=== PATIENT | male | born 1940 | race Caucasian/White ===

== ENCOUNTER → 2016-12-02 | Outpatient (CLI) | payer MEDICARE, OTHER ==
--- NOTE | 2016-12-02 16:49 | XCELERA REPORT ---
[address] [address] Lower Extremity Arterial Evaluation Name: EDEN FLORES Age: 76 yrs Gender: Male : 1940 Patient Status: Outpatient Patient Location: Study Date: 12/02/2016 10:49 AM Procedure: A color flow and duplex scan of the lower extremity arteries was performed bilaterally with velocity and waveform anaylsis. Ankle brachial indicies performed. PPG's performed. Reason For Study: PVD Ordering Physician: AMERICO ALVAREZ Performed By: Chelo Evans Measurements and Calculations Right Left ELECTRICAL MACHINIST PSV 177.2 176.4 cm/sec Prox PFA PSV -163.3 -137.6 cm/sec Prox SFA PSV -129.2 -120.1 cm/sec Mid SFA PSV -69.8 -55.6 cm/sec Dist SFA PSV -61.9 -55.3 cm/sec Prox Pop A PSV 39.1 50.6 cm/sec Prox ORION PSV 55.7 cm/sec Dist ORION PSV 68.5 36.5 cm/sec Dist NOISE TESTER PSV 66.2 79.4 cm/sec Tashi Pedis PSV 70.3 -11.9 cm/sec Right Side Arterial Evaluation Normal velocity and triphasic waveforms noted from the Common Femoral artery to the infrageniculate vessels.Heavy calcification noted in blood vessel potts. 0 % stenosis. Ankle Brachial index is 1.4. PPG's are multiphasic with attenuation, mostly in first digit. Left Side Arterial Evaluation Normal velocity and triphasic waveforms noted from the Common Femoral artery to the Posterior Tibial artery. Biphasic in the Anterior Tibial artery. Retrograde in the Dorsalis Pedis.Heavy calcification noted in blood vessel potts. 0 % stenosis. Ankle Brachial index is 1.4. PPG's are multiphasic with attenuation, mostly in first three digits. Interpretation Summary No hemodynamically significant lesions in the right lower extremity only, on duplex imaging, at rest. Mild hemodynamically significant lesions in the left lower extremity only, on duplex imaging, at rest. In spite of normal Hemodynamic findings, heavy calcification and, perhaps, abnormal PPG's are indicative of atherosclerosis. : AMERICO ALVAREZ > Ed Rowe
== END ==
LOC: SP 10:41
PROVIDERS: ATTEND Preventive Medicine Undersea and Hyperbaric Medicine
DX: I73.9 Peripheral vascular disease, unspecified (principal)
CPT/HCPCS: 93922; 93925

== ENCOUNTER 2017-03-27 11:33 | Emergency (ER) | payer MEDICARE, OTHER ==
--- NOTE | 2017-03-27 12:06 | RADIOLOGY REPORT (SQ) ---
EXAM DESCRIPTION: CT HEAD WITHOUT COMPLETED DATE/TIME: 03/27/2017 11:58 am REASON FOR STUDY: Fall COMPARISON: 08/20/2015 TECHNIQUE: Axial images acquired through the brain without intravenous contrast. Images reviewed wi th bone, brain and subdural windows. Images stored on PACS. All CT scanners at this facility use dose modulation, iterative reconstruction, and/or weight based d osing when appropriate to reduce radiation dose to as low as reasonably achievable (ALARA). [facility]: Dose Right [facility]: CareDose [facility]: Dose Right [facility]: Teradose 4D [facility]: Smart SmartHub RADIATION DOSE: CT Rad equipment meets quality standard of care and radiation dose reduction techniq ues were employed. CTDIvol: 64.6 mGy. DLP: 1163 mGy-cm. mGy. LIMITATIONS: None. FINDINGS: VENTRICLES: Prominent. CEREBRUM: No masses. No hemorrhage. No midline shift. Areas of low density in the white matter mos t likely due to chronic micro-vascular ischemic change. No evidence for acute infarction. CEREBELLUM: No masses. No hemorrhage. No alteration of density. No evidence for acute infarction. EXTRAAXIAL SPACES: Mild age-related involutional change. No fluid collections. No masses. ORBITS AND GLOBE: No intra- or extraconal masses. Normal contour of globe without masses. CALVARIUM: Post craniotomy change. No fracture. PARANASAL SINUSES: No fluid or mucosal thickening. SOFT TISSUES: No mass or hematoma. OTHER: No other significant finding. IMPRESSION: MILD CHRONIC CHANGES OF ATROPHY AND MICROVASCULAR ISCHEMIA. NO ACUTE PROCESS. EVIDENCE OF ACUTE STROKE: NO. TECHNICAL DOCUMENTATION: JOB ID: [id number] Quality ID # [id number]: Final reports with documentation of one or more dose reduction techniques (e.g., Au tomated exposure control, adjustment of the mA and/or kV according to patient size, use of iterative reconstruction technique) 2010 [employer]- All Rights Reserved
--- NOTE | 2017-03-27 12:07 | RADIOLOGY REPORT (SQ) ---
EXAM DESCRIPTION: CT CERVICAL SPINE WITHOUT COMPLETED DATE/TIME: 03/27/2017 11:58 am REASON FOR STUDY: Fall COMPARISON: None. TECHNIQUE: Axial images acquired through the cervical spine without intravenous contrast. Images re viewed with lung, soft tissue and bone windows. Reconstructed coronal and sagittal MPR images review ed. Images stored on PACS. All CT scanners at this facility use dose modulation, iterative reconstruction, and/or weight based d osing when appropriate to reduce radiation dose to as low as reasonably achievable (ALARA). [facility]: Dose Right [facility]: CareDose [facility]: Dose Right [facility]: Teradose 4D [facility]: Smart Technologies RADIATION DOSE: CT Rad equipment meets quality standard of care and radiation dose reduction techniq ues were employed. CTDIvol: 22.6 mGy. DLP: 444 mGy-cm. mGy. LIMITATIONS: None. FINDINGS: ALIGNMENT: Grade 1 anterolisthesis C3 on C4 in the setting of facet arthropathy. MINERALIZATION: Normal. VERTEBRAL BODIES: No fractures or dislocation. DISCS: Multilevel disc space narrowing with osteophytes. FACETS, LATERAL MASSES, POSTERIOR ELEMENTS: Facet arthropathy. No fractures. No dislocation. No ac habematolel findings. HARDWARE: None in the spine. VISUALIZED RIBS: No fractures. LUNG APICES AND SOFT TISSUES: No significant or acute findings. OTHER: No other significant finding. IMPRESSION: CHRONIC DEGENERATIVE CHANGES. NO ACUTE FINDINGS. TECHNICAL DOCUMENTATION: JOB ID: [id number] Quality ID # [id number]: Final reports with documentation of one or more dose reduction techniques (e.g., Au tomated exposure control, adjustment of the mA and/or kV according to patient size, use of iterative reconstruction technique) 2010 [employer]- All Rights Reserved
--- NOTE | 2017-03-27 12:08 | ER Document Report ---
ED Medical Screen (RME) - General Chief Complaint: Fall Stated Complaint: LOWER BACK PAIN Time Seen by Provider: 03/27/17 12:02 Mode of Arrival: Ambulatory Information source: Patient Notes: 68-year-old male presenting to the emergency department today secondary to a syncopal episode that occurred yesterday. at bedside states she heard the patient fall in the kitchen. The patient stated he does not remember any of that time, there are a few hours that he cannot recall any events that occurred. Patient has an abrasion to the right side of his back with surrounding ecchymosis and tenderness. Patient is on Plavix and 81 mg aspirin. TRAVEL OUTSIDE OF THE [place] IN LAST 30 DAYS: No - Related Data Allergies/Adverse Reactions: No Known Allergies Allergy (Unverified 05/19/15 08:26) Past Medical History - General Information source: Patient, [facility] Records - Past Medical History Cardiac Medical History: Reports: Hx Congestive Heart Failure - Questionable congestive heart failure, Hx Coronary Artery Disease, Hx Heart Attack - 7 yrs ago, Hx Hypercholesterolemia, Hx Hypertension - medicated Pulmonary Medical History: Reports: Hx COPD Malignancy Medical History: Reports Hx Colorectal Cancer Musculoskeltal Medical History: Reports Hx Arthritis Past Surgical History: Reports: Hx Appendectomy, Hx Bowel Surgery, Hx Cardiac Catheterization, Hx Cardiac Surgery - stent and pacemaker, port placement, Hx Coronary Stent, Hx Internal Defibrillator, Hx Pacemaker - pacer/defib, Hx Vascular Surgery - Chemo-Port placement - Immunizations Hx Diphtheria, Pertussis, Tetanus Vaccination: No Review of Systems - Review of Systems Cardiovascular: See HPI, Syncope Musculoskeletal: See HPI, Back pain Neurological/Psychological: See HPI, Other - memory loss Physical Exam - Vital signs Vitals: Temp Pulse Resp BP Pulse Ox 98.4 F 77 16 150/66 H 97 03/27/17 11:37 03/27/17 11:37 03/27/17 11:37 03/27/17 11:37 03/27/17 11:37 - General General appearance: Appears well, Alert - Respiratory Respiratory status: No respiratory distress Chest status: Nontender Breath sounds: Normal Chest palpation: Normal - Cardiovascular Rhythm: Regular Heart sounds: Normal auscultation Murmur: No - Back Back: Tender Notes: right flank abrasion with surrounding ecchymosis, tenderness over this area. Course - Vital Signs Vital signs: Temp Pulse Resp BP Pulse Ox 98.4 F 77 16 150/66 H 97 03/27/17 11:37 03/27/17 11:37 03/27/17 11:37 03/27/17 11:37 03/27/17 11:37 Scribe Documentation - Scribe Written by Hill:: Hill Chaudhary, 03/27/2017 1254 acting as scribe for :: Kathy
[2017-03-27 13:10] LABS: APPEARANCE,URINE SLIGHTLY-CLOUDY; BILIRUBIN,URINE NEGATIVE (NEGATIVE); COLOR,URINE YELLOW; GLUCOSE, URINE NEGATIVE (NEGATIVE); KETONES,URINE NEGATIVE (NEGATIVE); LEUKOCYTE ESTERASE,URINE NEGATIVE (NEGATIVE); NITRITE,URINE NEGATIVE (NEGATIVE); PROTEIN,URINE NEGATIVE (NEGATIVE); URINE SPECIFIC GRAVITY 1.017; UROBILINOGEN,URINE NEGATIVE mg/dL (<2.0)
[2017-03-27 13:15] LABS: ABSOLUTE BASOPHILS # (AUTO) 0.1 10^3/uL (0.0-0.2); ABSOLUTE LYMPHOCYTES (AUTO) 2.1 10^3/uL (0.5-4.7); ABSOLUTE NEUT (AUTO) 7.9 10^3/uL (1.7-8.2); BASOPHILS % (AUTO) 0.5 % (0-2); EOSINOPHILS % (AUTO) 0.4 % (0-6); HEMATOCRIT 44.9 % (37.9-51.0); LYMPHOCYTES % (AUTO) 18.9 % (13-45); MEAN CORPUSCULAR HEMOGLOBIN 34.1 pg (27.0-33.4); MEAN CORPUSCULAR HGB CONC 33.5 g/dL (32.0-36.0); MEAN CORPUSCULAR VOLUME 102 fl (80-97); MONOCYTES % (AUTO) 8.7 % (3-13); PLATELET COUNT 224 10^3/uL (150-450); RED BLOOD COUNT 4.41 10^6/uL (4.35-5.55); RED CELL DISTRIBUTION WIDTH 14.1 % (11.5-14.0); SEGMENTED NEUTROPHILS % (AUTO) 71.5 % (42-78); TOTAL CELLS COUNTED % (AUTO) 100 %; WHITE BLOOD COUNT 11.1 10^3/uL (4.0-10.5)
--- NOTE | 2017-03-27 13:35 | RADIOLOGY REPORT (SQ) ---
EXAM DESCRIPTION: RIBS RIGHT W/PA CHEST COMPLETED DATE/TIME: 03/27/2017 1:26 pm REASON FOR STUDY: Trauma with pain COMPARISON: CHEST RADIOGRAPH FROM 08/20/2015 TECHNIQUE: Frontal view of the chest and additional views of the right ribs acquired. NUMBER OF VIEWS: Three view. LIMITATIONS: None. FINDINGS: FRONTAL CXR: No pneumothorax. No pleural effusion. Stable chronic lung change on the lef t without new opacities. RIBS: Stable old healed right-sided rib fractures without acute displaced fracture identified. No ly tic or blastic bony lesions. OTHER: AICD. Right-sided Port-A-Cath. IMPRESSION: NO PNEUMOTHORAX. NO DISPLACED RIB FRACTURES. COMMENT: SITE OF TRAUMA/COMPLAINT MARKED/STAMP COMPLETED: NO. TECHNICAL DOCUMENTATION: JOB ID: [id number] [employer]- All Rights Reserved
[2017-03-27 15:11] LABS: ALANINE AMINOTRANSFERASE 35 U/L (21-72); ALBUMIN 3.9 g/dL (3.5-5.0); ALKALINE PHOSPHATASE 95 U/L (38-126); ANION GAP 10 (5-19); ASPARTATE AMINO TRANSFERASE 22 U/L (17-59); BILIRUBIN,DIRECT 0.3 mg/dL (0.0-0.4); BILIRUBIN,TOTAL 0.7 mg/dL (0.2-1.3); BLOOD UREA NITROGEN 22 mg/dL (7-20); CALCIUM 10.2 mg/dL (8.4-10.2); CARBON DIOXIDE 25 mmol/L (22-30); CHLORIDE 103 mmol/L (98-107); GLUCOSE 118 mg/dL (75-110); POTASSIUM 4.7 mmol/L (3.6-5.0); SODIUM 138.2 mmol/L (137-145); TOTAL PROTEIN 6.5 g/dL (6.3-8.2)
--- NOTE | 2017-03-27 15:46 | ER Document Report ---
ED Fall - General Chief Complaint: Fall Stated Complaint: LOWER BACK PAIN Time Seen by Provider: 03/27/17 12:02 Mode of Arrival: Ambulatory Information source: Patient, [facility] Records Notes: Patient had a fall injuring his right flank area. Last night, he says he fell asleep in the chair and when he awakened at 3 AM, he was in his bed. He does not remember getting to the bed or how he got to the bed. His recalls that in the evening, she heard the patient fall and went to check on him and he was on the floor. She was unable to get him up, so she left him on the floor. He was able to get himself up sometime during the night and make it to the bed. This morning, the patient does not have any symptoms except a residual injury to his right flank. Patient denies any chest pains. Denies abdominal pain. Denies any nausea, vomiting, or diarrhea. Denies any head injury. Denies headache. Denies any fever. Patient has a history of subdural hematoma evacuated at [place] a year or so ago. Never had a stroke. Currently on Plavix and aspirin. As a defibrillator and a pacemaker. He reports that his last detected firing of his defibrillator was about 6 years ago. TRAVEL OUTSIDE OF THE [place] IN LAST 30 DAYS: No - Related data Allergies/Adverse Reactions: No Known Allergies Allergy (Unverified 05/19/15 08:26) Past Medical History - General Information source: Patient, [facility] Records - Social History Smoking Status: Current Every Day Smoker Chew tobacco use (# tins/day): No Frequency of alcohol use: Heavy Drug Abuse: None Family History: Reviewed & Not Pertinent Patient has suicidal ideation: No Patient has homicidal ideation: No - Past Medical History Cardiac Medical History: Reports: Hx Congestive Heart Failure - Questionable congestive heart failure, Hx Coronary Artery Disease, Hx Heart Attack - 7 yrs ago, Hx Hypercholesterolemia, Hx Hypertension - medicated, Other - Pacemaker/ defibrillator Pulmonary Medical History: Reports: Hx COPD Malignancy Medical History: Reports Hx Colorectal Cancer Musculoskeltal Medical History: Reports Hx Arthritis Past Surgical History: Reports: Hx Appendectomy, Hx Bowel Surgery, Hx Cardiac Catheterization, Hx Cardiac Surgery - stent and pacemaker, port placement, Hx Coronary Stent, Hx Internal Defibrillator, Hx Pacemaker - pacer/defib, Hx Vascular Surgery - Chemo-Port placement - Immunizations Hx Diphtheria, Pertussis, Tetanus Vaccination: No Review of Systems - Review of Systems Notes: REVIEW OF SYSTEMS: CONSTITUTIONAL : Denies fever. EENT: Denies eye, ear, nose or mouth or throat pain or other symptoms. CARDIOVASCULAR: Denies chest pain. RESPIRATORY: Denies cough, chest congestion, or shortness of breath. GASTROINTESTINAL: Denies abdominal pain or nausea, vomiting, or diarrhea. GENITOURINARY: Denies difficulty or painful urinating, urinary frequency, blood in urine. MUSCULOSKELETAL: Denies back or neck pain. Denies joint pain or swelling. SKIN: Denies rash or skin lesions. Injury to the right flank area resulting in a large bruise with a central abrasion. NEUROLOGICAL: See HPI. Patient denies any symptoms today. Denies headache. Denies sensory loss or motor deficits. ALL OTHER SYSTEMS REVIEWED AND NEGATIVE. Physical Exam - Vital signs Vitals: Temp Pulse Resp BP Pulse Ox 98.4 F 77 16 150/66 H 97 03/27/17 11:37 03/27/17 11:37 03/27/17 11:37 03/27/17 11:37 03/27/17 11:37 Interpretation: Normal - Notes Notes: PHYSICAL EXAMINATION: GENERAL: Well-appearing, in no acute distress. HEAD: Atraumatic, normocephalic. 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 EYES: Pupils equal round and reactive to light, extraocular movements intact. ENT: oropharynx clear without exudates. Moist mucous membranes. NECK: Normal range of motion, supple. No carotid bruits heard. LUNGS: Breath sounds clear and equal bilaterally. HEART: Regular rate and rhythm without murmurs. ABDOMEN: Soft, nontender. No guarding or rebound. No masses. BACK: No tenderness throughout entire back. In the patient's right flank, he has a fairly large hematoma/bruise/ecchymosis with central abrasion. It is tender to touch. No fluid felt to be present in the injured area. Urinalysis is negative. EXTREMITIES: Normal range of motion without pain. NEUROLOGICAL: Normal speech, normal gait. Normal sensory, motor, and reflex exams. Awake, alert, and oriented x3. Cranial nerves normal. Completely normal neurologic exam at this time. Patient has not had any symptoms since he awakened this morning. PSYCH: Normal mood, normal affect. SKIN: Warm, dry, no rashes. Course - Re-evaluation Re-evalutation: 03/27/17 20:19 Patient's symptoms occurred sometime nearly 24 hours ago. He has been asymptomatic ever since. His examination at this time is essentially normal. I do not know if he had a syncopal episode or if he fell because of the neuropathy he has with his feet. However, he is basically gone through an observation time. Already. I do not think there is any further testing required at this time. Patient is advised to follow-up with his primary care for any further evaluation and care. Patient was advised to continue taking all of his medications including his Plavix and aspirin. - Vital Signs Vital signs: Temp Pulse Resp BP Pulse Ox 98.9 F 92 18 150/75 H 96 03/27/17 15:50 03/27/17 15:50 03/27/17 15:50 03/27/17 15:50 03/27/17 15:50 - Laboratory Result Diagrams: 03/27/17 12:07 03/27/17 12:07 Laboratory results interpreted by me: 03/27/17 03/27/17 12:07 12:07 WBC 11.1 H MCV 102 H MCH 34.1 H RDW 14.1 H BUN 22 H Glucose 118 H - Diagnostic Test Radiology reviewed: Image reviewed, Reports reviewed - CT scan of the patient's brain and C-spine show arthritic changes but no other significant findings. X- ray of the patient's ribs and chest do not show any fractures of any ribs and the lungs do not show any pneumothorax, etc. - EKG Interpretation by [facility] EKG shows normal: Sinus rhythm Rate: Normal Rhythm: NSR - At 84/min. Discharge - Discharge Clinical Impression: Fall, Contusion of right side of back Condition: Stable Disposition: HOME, SELF-CARE Additional Instructions: HEAD INJURY PRECAUTIONS: At this point, there is no evidence that your head injury is serious. Observation is necessary, however. Take only clear liquids for the first few hours, unless told otherwise by the doctor. If no pain medication was prescribed, you may take acetaminophen according to the directions on the bottle. Do not take any medication that may alter your level of alertness (unless you've discussed it with the doctor first) . Limit activity for the first 24 hours. Bed rest is best. During the first 24 hours, check to see approximately every two to three hours that the patient is easily arousable, responds normally, and can perform common tasks such as walking without difficulty. Contact your doctor or go to the hospital if any of the following things occur: Persistent vomiting, difficulty in arousing the patient, worsening or continued headache, or failure to improve as expected. Head injuries can cause symptoms that persist for a few days or even a few weeks. NECK INJURY (CERVICAL STRAIN): You have a neck strain. This is an injury to the muscles and ligaments in the neck. There is no evidence of a fracture of the neck bones. Also, no injury to the spinal cord or nerve roots was detected. Usually, stiffness and pain INCREASE for the first 24-48 hours after the injury. The pain will gradually resolve and the neck will become more mobile. Most patients are back at work or school within a few days. Typically, complete healing takes about two or three weeks. The usual initial treatment is rest and cold packs. A neck collar may be placed to keep the muscles of the neck at rest. Antiinflammatory and muscle relaxing medication are often used to reduce the spasm and irritation. You should call the doctor, or go to the hospital, if you develop numbness or weakness in any extremity, problems with your bladder or bowel, or pain radiating down the arms. CONTUSION: Your injury has resulted in a contusion -- a crushing of the deep tissues. No injury to important structures was detected during the physician's exam. Contusions vary in the amount of pain they cause, and in the length of time required for healing. Typically, the area will become bruised, and will remain painful to touch for two or three weeks. However, most patients are back to working and playing within a few days. After the initial period of rest and cold-packs, your symptoms (together with the doctor's recommendations) will determine how rapidly you can get back to full activity. Usually this means "do what feels okay, but don't do things that hurt." If re-examination was recommended, it's important to follow up as instructed. Call the doctor or return any time if pain increases, if swelling becomes severe, if you develop numbness or weakness in an injured extremity, or if any other alarming symptoms occur. ABRASIONS: An abrasion is a scraping injury of the skin. Some scarring may result. The seriousness of an abrasion is not always obvious at first. Hidden tissue damage may be present and infection may occur despite proper care. Complete healing may take from ten days to as long as a month. The healing time depends on the depth of the abrasion, and on the amount of crushing of underlying tissues from the injury. Keep the wound and dressing clean. Do not shower or bathe the area until okayed by the doctor. If the dressing gets wet, remove it and blot the wound dry, then reapply a clean dressing. Dressings should be changed every day. Sunscreen should be used for six months after the skin is healed. If any signs of infection occur (swelling, redness, increasing tenderness, red streaks, profuse purulent drainage from the abrasion, tender lumps in the armpit or groin above the abrasion, or fever), see the doctor immediately. LOW BACK PAIN: Three out of every four people will have an episode of disabling back pain during their lifetime. Most commonly the pain is due to straining of the muscles and ligaments in the low back. Usual treatment includes: (1) Rest on a firm surface. Avoid lying on your stomach. (2) Ice pack the painful area. After a few days, gentle heat may be used intermittently to relax the area, or ice packs can be continued. (3) Medication may be needed -- muscle relaxers and antiinflammatory medicines are commonly used. (4) As the back improves, exercises are prescribed to strengthen the back and abdominal muscles. Your doctor will advise you on the proper care for your back at each stage in your recovery. You may be better in a few days -- or healing may take several weeks. If new symptoms of a "herniated disc" (radiation of pain, numbness, or tingling down the back of the leg or weakness in the leg) occur, you should be re-examined. Further testing may be necessary. USE OF TYLENOL (ACETAMINOPHEN): Acetaminophen may be taken for pain relief or fever control. It's much safer than aspirin, offering a wider range of "safe" dosages. It is safe during . Some brand names are Tylenol, Panadol, Datril, Anacin 3, Tempra, and Liquiprin. Acetaminophen can be repeated every four hours. The following are maximum recommended dosages: WEIGHT Dose Drops Elixir Chewable( 80mg) (LBS.) drprs=droppers tsp=teaspoon >89 pounds or adults 650 mg to 900 mg Acetaminophen can be repeated every four hours. Maximum dose not to exceed 4000 mg a day. These maximum recommended dosages are slightly higher than the dosages written on the product container, but these dosages are very safe and below the toxic dosage for acetaminophen. Possible SYNCOPAL EPISODE: Syncope (fainting or near-fainting) can occur from many different health problems. Or it can be a simple fainting spell requiring no treatment. It is safe for you to go home, but further evaluation will likely be necessary. Your work-up may include tests for internal bleeding, heart disease, medication problems, or near-strokes. Tests are not always required, however, depending on the nature of your problem. The warning signs of an impending faint include: dizziness, lightheadedness , nausea, hot flashes, tingling, and weakness. If this happens, lay down and put your feet up, then wait until all of these symptoms have passed before standing up again. If these episodes become recurrent, or if you develop chest pain, heart palpitations, mental confusion, blurred vision, or headache, then you should call the physician, or go to the emergency room. NORMAL EXAM AND WORKUP: At this time, your examination and workup show no significant abnormality. No significant abnormal physical findings were noted. All laboratory, EKG, and imaging (x-ray, CT scans, ultrasound) studies that were ordered show no significant abnormality. Although your examination and all studies that were ordered showed no significant abnormal finding, there are no examinations and no studies that are 100% accurate. There is always the possibility that some abnormality could exist and not be detected with physical examination or within the limits and capabilities of laboratory and other studies. You should return or follow up as you were instructed on your visit today for further evaluation if your symptoms do not resolve. FOLLOW-UP CARE: If you have been referred to a physician for follow-up care, call the physician s office for an appointment as you were instructed or within the next two days. If you experience worsening or a significant change in your symptoms, notify the physician immediately or return to the Emergency Department at any time for re-evaluation. Referrals: TOÑO AVERY MD [Primary Care Provider] - Follow up as needed
[2017-03-27 15:59] VITALS: BP 150/75
--- NOTE | 2017-03-27 22:14 | EKG REPORT ---
SEVERITY:- ABNORMAL ECG - SINUS RHYTHM INFERIOR INFARCT, AGE INDETERMINATE NON SPECIFIC T WAVE CHANGES LATERAL LEADS : Confirmed by: Rebeka Tuttle 27-Mar-2017 22:14:18
== END 2017-03-27 15:59 | disposition home or self-care (01) ==
LOC: ER 11:33
DX: S30.0XXA Contusion of lower back and pelvis, initial encounter (principal); M54.5 Low back pain; W19.XXXA Unspecified fall, initial encounter; Z79.899 Other long term (current) drug therapy; F17.200 Nicotine dependence, unspecified, uncomplicated
CPT/HCPCS: 36415; 70450; 72125; 80053; 81001; 85025; 93005; 93010; 99284

== ENCOUNTER → 2017-05-17 | Outpatient (CLI) | payer MEDICARE, OTHER ==
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
== END ==
LOC: OD 08:31
PROVIDERS: ATTEND Internal Medicine Medical Oncology
DX: C18.2 Malignant neoplasm of ascending colon (principal)
CPT/HCPCS: 71046

== ENCOUNTER → 2017-10-07 | Outpatient (CLI) | payer MEDICARE, OTHER ==
[2017-10-07 11:39] LABS: ANION GAP 9 (5-19); BLOOD UREA NITROGEN 18 mg/dL (7-20); CALCIUM 10.4 mg/dL (8.4-10.2); CARBON DIOXIDE 33 mmol/L (22-30); CHLORIDE 101 mmol/L (98-107); GLUCOSE 124 mg/dL (75-110); POTASSIUM 5.2 mmol/L (3.6-5.0); SODIUM 143.1 mmol/L (137-145)
== END ==
LOC: LAB 10:32
PROVIDERS: ATTEND Nurse Practitioner Adult Health
DX: I50.22 Chronic systolic (congestive) heart failure (principal)
CPT/HCPCS: 36415; 80048

== ENCOUNTER 2017-11-03 15:03 | Emergency (ER) | payer OTHER, MEDICARE ==
[2017-11-03] MEDS ORDERED: MORPHINE SULFATE 10 MG/ML INJ IV ONE (15:28)
[2017-11-03] MEDS ORDERED: ONDANSETRON HCL INJ/PF 4 MG/2 ML SDV IV ONE (15:29)
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
[2017-11-03] MEDS ORDERED: BACITRACIN ZINC OINTMENT 15 GM TP ONE (17:06)
[2017-11-03] MEDS ORDERED: OXYCODONE-ACETAMINOPHEN 5-325 MG TABLET PO ONE (17:07)
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
[2017-11-03 18:03] VITALS: BP 123/70
== END 2017-11-03 18:45 | disposition home or self-care (01) ==
LOC: ER 15:03
DX: T22.221A Burn of second degree of right elbow, initial encounter (principal); T22.211A Burn of second degree of right forearm, initial encounter; T23.271A Burn of second degree of right wrist, initial encounter; X01.8XXA Other exposure to uncontrolled fire, not in building or structure, initial encounter; Y93.H9 Activity, other involving exterior property and land maintenance, building and construction; F17.200 Nicotine dependence, unspecified, uncomplicated; E78.00 Pure hypercholesterolemia, unspecified; I10 Essential (primary) hypertension; I25.2 Old myocardial infarction; J44.9 Chronic obstructive pulmonary disease, unspecified; Z95.0 Presence of cardiac pacemaker
CPT/HCPCS: 99283; 96374; 96375; 71045; J3490; J2270; J2405

== ENCOUNTER 2017-11-07 09:47 | Emergency (ER) | payer OTHER, MEDICARE ==
[2017-11-07] MEDS ORDERED: NORMAL SALINE 1000 ML 1,000 ML IV ONE (10:19)
[2017-11-07 11:01] LABS: ABSOLUTE BASOPHILS # (AUTO) 0.1 10^3/uL (0.0-0.2); ABSOLUTE LYMPHOCYTES (AUTO) 1.3 10^3/uL (0.5-4.7); ABSOLUTE NEUT (AUTO) 9.4 10^3/uL (1.7-8.2); BASOPHILS % (AUTO) 0.8 % (0-2); EOSINOPHILS % (AUTO) 0.2 % (0-6); HEMATOCRIT 37.5 % (37.9-51.0); HEMOGLOBIN 12.6 g/dL (13.5-17.0); LYMPHOCYTES % (AUTO) 10.9 % (13-45); MEAN CORPUSCULAR HEMOGLOBIN 34.6 pg (27.0-33.4); MEAN CORPUSCULAR HGB CONC 33.7 g/dL (32.0-36.0); MEAN CORPUSCULAR VOLUME 103 fl (80-97); MONOCYTES % (AUTO) 8.3 % (3-13); PLATELET COUNT 212 10^3/uL (150-450); RED BLOOD COUNT 3.65 10^6/uL (4.35-5.55); RED CELL DISTRIBUTION WIDTH 13.6 % (11.5-14.0); SEGMENTED NEUTROPHILS % (AUTO) 79.8 % (42-78); TOTAL CELLS COUNTED % (AUTO) 100 %; WHITE BLOOD COUNT 11.8 10^3/uL (4.0-10.5)
[2017-11-07 11:11] LABS: ALANINE AMINOTRANSFERASE 19 U/L (21-72); ALBUMIN 3.5 g/dL (3.5-5.0); ALKALINE PHOSPHATASE 72 U/L (38-126); ANION GAP 8 (5-19); ASPARTATE AMINO TRANSFERASE 23 U/L (17-59); BILIRUBIN,DIRECT 0.3 mg/dL (0.0-0.4); BILIRUBIN,TOTAL 0.4 mg/dL (0.2-1.3); BLOOD UREA NITROGEN 23 mg/dL (7-20); CALCIUM 8.8 mg/dL (8.4-10.2); CARBON DIOXIDE 26 mmol/L (22-30); CHLORIDE 104 mmol/L (98-107); GLUCOSE 141 mg/dL (75-110); POTASSIUM 4.4 mmol/L (3.6-5.0); SODIUM 137.8 mmol/L (137-145); TOTAL PROTEIN 6.9 g/dL (6.3-8.2)
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
[2017-11-07 14:00] VITALS: BP 110/64
== END 2017-11-07 14:19 | disposition home or self-care (01) ==
LOC: ER 09:47
DX: T20.29XD Burn of second degree of multiple sites of head, face, and neck, subsequent encounter (principal); T22.291D Burn of second degree of multiple sites of right shoulder and upper limb, except wrist and hand, subsequent encounter; X08.8XXD Exposure to other specified smoke, fire and flames, subsequent encounter; L71.9 Rosacea, unspecified; F17.200 Nicotine dependence, unspecified, uncomplicated; I25.10 Atherosclerotic heart disease of native coronary artery without angina pectoris; I25.2 Old myocardial infarction; I10 Essential (primary) hypertension; J44.9 Chronic obstructive pulmonary disease, unspecified; Z85.048 Personal history of other malignant neoplasm of rectum, rectosigmoid junction, and anus; Z92.21 Personal history of antineoplastic chemotherapy
CPT/HCPCS: 99283; 96360; 36415; 85025; 80053; J7030

== ENCOUNTER 2017-11-16 07:50 | Emergency (ER) | payer OTHER, MEDICARE ==
--- NOTE | 2017-11-16 08:45 | ER Document Report ---
ED Extremity Problem, Lower - General Chief Complaint: Leg Pain Stated Complaint: LEG PAIN Time Seen by Provider: 11/16/17 08:42 Notes: This is a 77-year-old male to emergency department with a chief complaint of left leg pain. Feels like he has a charley horse in his left calf. Last time he had this happen he had a blood clot. Has had blood clots in his leg before. Was on blood thinners but recently had to stop because he is scheduled for colonoscopy. History of cancer. History of colon resection. Denies any chest pain or shortness of breath at this time. Most the pain is located distally on the left lower extremity just proximal to the ankle on the posterior aspect of the leg. TRAVEL OUTSIDE OF THE [place] IN LAST 30 DAYS: No - HPI Patient complains to provider of: Pain Location: Ankle, Leg Occurred: Yesterday Where: Home - Related Data Allergies/Adverse Reactions: No Known Allergies Allergy (Verified 11/16/17 07:51) Past Medical History - General Information source: Patient - Social History Smoking Status: Current Every Day Smoker Frequency of alcohol use: None Drug Abuse: None Lives with: Spouse/Significant other Family History: Reviewed & Not Pertinent - Past Medical History Cardiac Medical History: Reports: Hx Congestive Heart Failure - Questionable congestive heart failure, Hx Coronary Artery Disease, Hx Heart Attack - 7 yrs ago, Hx Hypercholesterolemia, Hx Hypertension - medicated Pulmonary Medical History: Reports: Hx COPD Denies: Hx Asthma, Hx Bronchitis, Hx Pneumonia Neurological Medical History: Denies: Hx Cerebrovascular Accident, Hx Seizures Renal/ Medical History: Denies: Hx Peritoneal Dialysis Malignancy Medical History: Reports Hx Colorectal Cancer - Has had surgery and chemotherapy. GI Medical History: Denies: Hx Hepatitis, Hx Hiatal Hernia, Hx Ulcer Musculoskeletal Medical History: Reports Hx Arthritis Infectious Medical History: Denies: Hx Hepatitis Past Surgical History: Reports: Hx Abdominal Surgery - colon, Hx Appendectomy, Hx Bowel Surgery, Hx Cardiac Catheterization, Hx Cardiac Surgery - stent and pacemaker, port placement, Hx Coronary Stent, Hx Internal Defibrillator, Hx Pacemaker - pacer/defib, Hx Vascular Surgery - Chemo-Port placement, Other - Subdural hematoma surgery a year or so ago.. Denies: Hx Open Heart Surgery - Immunizations Hx Diphtheria, Pertussis, Tetanus Vaccination: No Review of Systems - Review of Systems Notes: Constitutional: denies: Chills, Diaphoresis, Fever, Malaise, Weakness EENT: denies: Eye discharge, Blurred vision, Tearing, Double vision, Nose congestion, Nose discharge, Throat swelling, Mouth pain Cardiovascular: denies: Palpitations, Heart racing, Orthopnea, Dyspnea, Chest pain Respiratory: denies: Cough, Hurts to breathe, Wheezing, Shortness of breath Gastrointestinal: denies: Abdominal pain, Diarrhea, Nausea, Vomiting, Black stools, bright red blood in stool Genitourinary: denies: Burning, Dysuria, Discharge, Frequency, Flank pain, Hematuria Musculoskeletal: Complains of pain in the left calf with achiness. Hematologic/Lymphatic: denies: Anemia, Easy bleeding, Easy bruising,. Does have a history of blood clots as well as cancer. Neurological/Psychological: denies: Confusion, Dementia, Depression, Loss of consciousness Skin: No lesions, no masses, no skin breakdown, no abscesses. Patient recently had second-degree gonzalez to his right upper extremity and face Physical Exam - Vital signs Vitals: Temp Pulse Resp BP Pulse Ox 97.8 F 97 14 110/58 L 96 11/16/17 07:57 11/16/17 07:57 11/16/17 07:57 11/16/17 07:57 11/16/17 07:57 Interpretation: Normal - General General appearance: Appears well, Alert - HEENT Head: Normocephalic, Atraumatic Eyes: Normal Pupils: PERRL - Respiratory Respiratory status: No respiratory distress Chest status: Nontender Breath sounds: Normal Chest palpation: Normal - Cardiovascular Rhythm: Regular Heart sounds: Normal auscultation Murmur: No - Abdominal Inspection: Normal Distension: No distension Bowel sounds: Normal Tenderness: Nontender Organomegaly: No organomegaly - Back Back: Normal, Nontender - Extremities General upper extremity: Normal inspection, Nontender, Normal color, Normal ROM , Normal temperature General lower extremity: Normal inspection, Normal color, Normal ROM, Normal temperature, Normal weight bearing. No: Tender, Edema, Luh's sign - Neurological Neuro grossly intact: Yes Cognition: Normal Orientation: AAOx4 [place] Coma Scale Eye Opening: Spontaneous [place] Coma Scale Verbal: Oriented [place] Coma Scale Motor: Obeys Commands [place] Coma Scale Total: 15 Speech: Normal Motor strength normal: LUE, RUE, LLE, RLE Sensory: Normal - Psychological Associated symptoms: Normal affect, Normal mood - Skin Skin Temperature: Warm Skin Moisture: Dry Skin Color: Normal Course - Re-evaluation Re-evalutation: 11/16/17 08:45 Get basic labs and ultrasound of the left lower extremity 11/16/17 10:52 Laboratory 11/16/17 11/16/17 09:08 09:08 WBC 11.2 H RBC 3.60 L Hgb 12.3 L Hct 36.5 L MCV 102 H MCH 34.3 H MCHC 33.8 RDW 13.3 Plt Count 444 Seg Neutrophils % 78.4 H Lymphocytes % 11.4 L Monocytes % 8.6 Eosinophils % 0.8 Basophils % 0.8 Absolute Neutrophils 8.8 H Absolute Lymphocytes 1.3 Absolute Monocytes 1.0 Absolute Eosinophils 0.1 Absolute Basophils 0.1 Sodium 136.9 L Potassium 4.2 Chloride 100 Carbon Dioxide 28 Anion Gap 9 BUN 22 H Creatinine 1.09 Est GFR ( Amer) > 60 Est GFR (Non-Af Amer) > 60 Glucose 143 H Calcium 9.3 Total Bilirubin 0.4 Direct Bilirubin 0.2 Neonat Total Bilirubin Not Reportable Neonat Direct Bilirubin Not Reportable Neonat Indirect Bili Not Reportable AST 16 L ALT 31 Alkaline Phosphatase 68 Total Protein 6.1 L Albumin 3.2 L 11/16/17 10:52 Unofficial ultrasound readings negative for DVT or arterial occlusion. At this time will recommend patient get repeat ultrasound in 5-7 days by primary care doctor or return for repeat evaluation if symptoms are getting worse. - Vital Signs Vital signs: Temp Pulse Resp BP Pulse Ox 97.8 F 97 14 110/58 L 96 11/16/17 07:57 11/16/17 07:57 11/16/17 07:57 11/16/17 07:57 11/16/17 07:57 - Laboratory Result Diagrams: 11/16/17 09:08 11/16/17 09:08 Laboratory results interpreted by me: 11/16/17 11/16/17 09:08 09:08 WBC 11.2 H RBC 3.60 L Hgb 12.3 L Hct 36.5 L MCV 102 H MCH 34.3 H Seg Neutrophils % 78.4 H Lymphocytes % 11.4 L Absolute Neutrophils 8.8 H Sodium 136.9 L BUN 22 H Glucose 143 H AST 16 L Total Protein 6.1 L Albumin 3.2 L Discharge - Discharge Clinical Impression: Leg pain, left Condition: Good Disposition: HOME, SELF-CARE Instructions: Leg Pain Nonspecific ([facility]), Possible Evolving Leg DVT ([facility]) Additional Instructions: It will be very important that you follow-up with her primary care doctor for repeat evaluation as a repeat ultrasound may need to be performed in approximately 5-7 days to make sure there is no progression. Ultrasound is not 100% perfect and ruling out DVT. The ultrasound appears unremarkable today however there could be a small blood clot that could propagate and get larger so a repeat ultrasound may be in order if symptoms persist over the next week Referrals: TOÑO AVERY MD [Primary Care Provider] - Follow up as needed
[2017-11-16 09:44] LABS: ABSOLUTE BASOPHILS # (AUTO) 0.1 10^3/uL (0.0-0.2); ABSOLUTE EOSINOPHILS # (AUTO) 0.1 10^3/uL (0.0-0.6); ABSOLUTE LYMPHOCYTES (AUTO) 1.3 10^3/uL (0.5-4.7); ABSOLUTE NEUT (AUTO) 8.8 10^3/uL (1.7-8.2); BASOPHILS % (AUTO) 0.8 % (0-2); EOSINOPHILS % (AUTO) 0.8 % (0-6); HEMATOCRIT 36.5 % (37.9-51.0); HEMOGLOBIN 12.3 g/dL (13.5-17.0); LYMPHOCYTES % (AUTO) 11.4 % (13-45); MEAN CORPUSCULAR HEMOGLOBIN 34.3 pg (27.0-33.4); MEAN CORPUSCULAR HGB CONC 33.8 g/dL (32.0-36.0); MEAN CORPUSCULAR VOLUME 102 fl (80-97); MONOCYTES % (AUTO) 8.6 % (3-13); PLATELET COUNT 444 10^3/uL (150-450); RED CELL DISTRIBUTION WIDTH 13.3 % (11.5-14.0); SEGMENTED NEUTROPHILS % (AUTO) 78.4 % (42-78); TOTAL CELLS COUNTED % (AUTO) 100 %; WHITE BLOOD COUNT 11.2 10^3/uL (4.0-10.5)
[2017-11-16 10:05] LABS: ALANINE AMINOTRANSFERASE 31 U/L (21-72); ALBUMIN 3.2 g/dL (3.5-5.0); ALKALINE PHOSPHATASE 68 U/L (38-126); ANION GAP 9 (5-19); ASPARTATE AMINO TRANSFERASE 16 U/L (17-59); BILIRUBIN,DIRECT 0.2 mg/dL (0.0-0.4); BILIRUBIN,TOTAL 0.4 mg/dL (0.2-1.3); BLOOD UREA NITROGEN 22 mg/dL (7-20); CALCIUM 9.3 mg/dL (8.4-10.2); CARBON DIOXIDE 28 mmol/L (22-30); CHLORIDE 100 mmol/L (98-107); GLUCOSE 143 mg/dL (75-110); POTASSIUM 4.2 mmol/L (3.6-5.0); SODIUM 136.9 mmol/L (137-145); TOTAL PROTEIN 6.1 g/dL (6.3-8.2)
--- NOTE | 2017-11-16 11:24 | RADIOLOGY REPORT (SQ) ---
EXAM DESCRIPTION: VENOUS UNILATERAL LOWER COMPLETED DATE/TIME: 11/16/2017 11:00 am REASON FOR STUDY: left leg pain, hx of blood clots COMPARISON: None. TECHNIQUE: Dynamic and static schulz scale and color images acquired of the left leg venous system. Se lected spectral images acquired with additional compression and augmentation maneuvers. The contralat eral common femoral vein and saphenofemoral junction were also imaged. Images stored on PACS. LIMITATIONS: None. FINDINGS: LEFT COMMON FEMORAL: Normal phasicity, compression and augmentation. No visualized echogenic material on g ray scale. No defects on color images. FEMORAL: Normal compression and augmentation. No visualized echogenic material on schulz scale. No defe cts on color images. POPLITEAL: Normal compression, augmentation. No visualized echogenic material on schulz scale. No defec ts on color images. CALF VESSELS: Peroneal veins not identified. Posterior tibial vein normal compression, augmentation. No visualized echogenic material on schulz scale. No defects on color images. GSV and SSV: Normal compression, augmentation. No visualized echogenic material on schulz scale. No def ects on color images. ANY DEEP VENOUS INSUFFICIENCY: Not evaluated. ANY EVIDENCE OF POPLITEAL CYST: No. OTHER: No other significant finding. RIGHT COMMON FEMORAL VEIN AND SAPHENOFEMORAL JUNCTION: Normal phasicity, compression and augmentation. No visualized echogenic material on schulz scale. No de fects on color images. IMPRESSION: NO EVIDENCE OF DVT OR SVT IN THE LEFT LEG. TECHNICAL DOCUMENTATION: JOB ID: [id number] [employer] All Rights Reserved Reading location - IP/workstation name: [email or web address]
[2017-11-16 12:04] VITALS: BP 110/74
[2017-11-16 13:00] LABS: INTERNATIONAL RATION (INR) 1.05; PROTHROMBIN TIME 14.3 SEC (11.4-15.4)
== END 2017-11-16 12:04 | disposition home or self-care (01) ==
LOC: ER 07:50
DX: M79.662 Pain in left lower leg (principal); F17.200 Nicotine dependence, unspecified, uncomplicated; Z86.718 Personal history of other venous thrombosis and embolism; I25.10 Atherosclerotic heart disease of native coronary artery without angina pectoris; I10 Essential (primary) hypertension; I25.2 Old myocardial infarction; J44.9 Chronic obstructive pulmonary disease, unspecified; Z85.048 Personal history of other malignant neoplasm of rectum, rectosigmoid junction, and anus; Z92.21 Personal history of antineoplastic chemotherapy; Z95.5 Presence of coronary angioplasty implant and graft; Z95.810 Presence of automatic (implantable) cardiac defibrillator
CPT/HCPCS: 36415; 80053; 85025; 85610; 85730; 93971; 99284

== ENCOUNTER 2017-11-17 06:05 | Emergency (ER) | payer OTHER, MEDICARE ==
[2017-11-17] MEDS ORDERED: HEPARIN SOD (PORCINE) 1,000 UNIT/ML 10 ML VIAL IV ONE (06:52)
[2017-11-17] MEDS ORDERED: HEPARIN SODIUM,PORCINE/D5W 25,000 UNIT/250 ML RTUINJ IV PRN (06:52)
--- NOTE | 2017-11-17 06:52 | ER Document Report ---
ED Extremity Problem, Lower - General Chief Complaint: Leg Pain Stated Complaint: LEG PAIN Time Seen by Provider: 11/17/17 06:28 Notes: This is a 77-year-old male to the emergency department chief complaint of worsening pain in the left leg. Patient was seen yesterday for similar symptoms. This physician that saw him today he also saw him yesterday. On yesterday's visit the foot was warm and pulses were palpable as well as dopplerable. Patient had a ultrasound of the left lower extremity to rule out DVT. Ultrasound report verbally by the assistant prosecuting attorney reported arterial flow as well as no evidence of DVT. Labs are unremarkable. Slight elevated WBC count. Patient was advised that symptoms got worse to return immediately as this could be an evolving occlusion of some sort. Symptoms did get worse over the night so patient presented here at 6 AM this morning. On evaluation this morning the left foot was cool. Pulses were unable to be palpated. Doppler was immediately performed. Unable to Doppler the dorsalis pedis or posterior tibialis. Obvious change in exam as compared to yesterday. Immediate CTA of the aorta and extremity ordered. It is throbbing. Hurts to move TRAVEL OUTSIDE OF THE [place] IN LAST 30 DAYS: No - HPI Patient complains to provider of: Pain Location: Ankle, Foot Occurred: Yesterday Where: Home Quality of pain: Achy Severity: Moderate Pain Level: 4 Recent injury: No Associated symptoms: Unable to bear weight - Related Data Allergies/Adverse Reactions: No Known Allergies Allergy (Verified 11/16/17 07:51) Past Medical History - General Information source: Patient - Social History Smoking Status: Current Every Day Smoker Cigarette use (# per day): Yes Frequency of alcohol use: None Drug Abuse: None Lives with: Spouse/Significant other Family History: Reviewed & Not Pertinent - Past Medical History Cardiac Medical History: Reports: Hx Congestive Heart Failure - Questionable congestive heart failure, Hx Coronary Artery Disease, Hx Heart Attack - 7 yrs ago, Hx Hypercholesterolemia, Hx Hypertension - medicated Pulmonary Medical History: Reports: Hx COPD Denies: Hx Asthma, Hx Bronchitis, Hx Pneumonia Neurological Medical History: Denies: Hx Cerebrovascular Accident, Hx Seizures Renal/ Medical History: Denies: Hx Peritoneal Dialysis Malignancy Medical History: Reports Hx Colorectal Cancer - Has had surgery and chemotherapy. GI Medical History: Denies: Hx Hepatitis, Hx Hiatal Hernia, Hx Ulcer Musculoskeletal Medical History: Reports Hx Arthritis Infectious Medical History: Denies: Hx Hepatitis Past Surgical History: Reports: Hx Abdominal Surgery - colon, Hx Appendectomy, Hx Bowel Surgery, Hx Cardiac Catheterization, Hx Cardiac Surgery - stent and pacemaker, port placement, Hx Coronary Stent, Hx Internal Defibrillator, Hx Pacemaker - pacer/defib, Hx Vascular Surgery - Chemo-Port placement, Other - Subdural hematoma surgery a year or so ago.. Denies: Hx Open Heart Surgery - Immunizations Hx Diphtheria, Pertussis, Tetanus Vaccination: No Review of Systems - Review of Systems Notes: Constitutional: denies: Chills, Diaphoresis, Fever, Malaise, Weakness EENT: denies: Eye discharge, Blurred vision, Tearing, Double vision, Nose congestion, Nose discharge, Throat swelling, Mouth pain Cardiovascular: denies: Palpitations, Heart racing, Orthopnea, Dyspnea, Chest pain Respiratory: denies: Cough, Hurts to breathe, Wheezing, Shortness of breath Gastrointestinal: denies: Abdominal pain, Diarrhea, Nausea, Vomiting, Black stools, bright red blood in stool Genitourinary: denies: Burning, Dysuria, Discharge, Frequency, Flank pain, Hematuria Musculoskeletal: Planes of pain in the left foot, left ankle, throbbing pain. Hematologic/Lymphatic: denies: Anemia, Easy bleeding, Easy bruising,. History of blood clots. Neurological/Psychological: denies: Confusion, Dementia, Depression, Loss of consciousness Skin: No lesions, no masses, no skin breakdown, no abscesses Physical Exam - Vital signs Vitals: Temp Pulse Resp BP Pulse Ox 97.7 F 78 18 79/44 L 93 11/17/17 06:16 11/17/17 06:16 11/17/17 06:16 11/17/17 06:16 11/17/17 06:16 Interpretation: Hypotensive - General General appearance: Appears well, Alert - HEENT Head: Normocephalic, Atraumatic Eyes: Normal Pupils: PERRL - Respiratory Respiratory status: No respiratory distress Chest status: Nontender Breath sounds: Normal Chest palpation: Normal - Cardiovascular Rhythm: Regular Heart sounds: Normal auscultation Murmur: No Notes: The left lower extremity demonstrates coolness to the touch. Unable to palpate pulses in the foot. - Abdominal Inspection: Normal Distension: No distension Bowel sounds: Normal Tenderness: Nontender Organomegaly: No organomegaly - Back Back: Normal, Nontender - Extremities General upper extremity: Normal inspection, Nontender, Normal color, Normal ROM , Normal temperature General lower extremity: Tender. No: Normal color - Pale, Normal temperature - COld, Luh's sign Foot: Tender, Other - There is no palpable pulses in the posterior tibialis and dorsalis pedis - Neurological Neuro grossly intact: Yes Cognition: Normal Orientation: AAOx4 [place] Coma Scale Eye Opening: Spontaneous Debora Coma Scale Verbal: Oriented [place] Coma Scale Motor: Obeys Commands [place] Coma Scale Total: 15 Speech: Normal Motor strength normal: LUE, RUE, LLE, RLE Sensory: Normal - Psychological Associated symptoms: Normal affect, Normal mood - Skin Skin Temperature: Warm Skin Moisture: Dry Skin Color: Normal Course - Re-evaluation Re-evalutation: 11/17/17 07:26 Obvious change from yesterday's exam. Concern exists for vascular occlusion. On further questioning the states that he has had a vascular surgery of some sort but she is not really sure what that was. Possibly this patient has had a bypass graft. Was recently taken off of his blood thinners for colonoscopy. I am immediately ordering a CTA of the aorta and lower extremity. Starting patient on heparin empirically at this time. Of note, patient has no abdominal pain. No palpable mass in the abdomen. No back pain. 11/17/17 08:22 Laboratory 11/17/17 11/17/17 11/17/17 06:41 06:41 06:41 WBC 11.5 H RBC 3.71 L Hgb 12.7 L Hct 37.5 L MCV 101 H MCH 34.3 H MCHC 33.9 RDW 13.1 Plt Count 445 Seg Neutrophils % 77.3 Lymphocytes % 13.2 Monocytes % 7.9 Eosinophils % 1.0 Basophils % 0.6 Absolute Neutrophils 8.9 H Absolute Lymphocytes 1.5 Absolute Monocytes 0.9 Absolute Eosinophils 0.1 Absolute Basophils 0.1 PT 14.1 INR 1.04 APTT 34.5 Sodium 136.8 L Potassium 4.4 Chloride 100 Carbon Dioxide 29 Anion Gap 8 BUN 25 H Creatinine 1.08 Est GFR ( Amer) > 60 Est GFR (Non-Af Amer) > 60 Glucose 139 H Calcium 9.1 Total Bilirubin 0.2 Direct Bilirubin 0.2 Neonat Total Bilirubin Not Reportable Neonat Direct Bilirubin Not Reportable Neonat Indirect Bili Not Reportable AST 25 ALT 33 Alkaline Phosphatase 81 Troponin I Total Protein 6.4 Albumin 3.3 L 11/17/17 06:41 WBC RBC Hgb Hct MCV MCH MCHC RDW Plt Count Seg Neutrophils % Lymphocytes % Monocytes % Eosinophils % Basophils % Absolute Neutrophils Absolute Lymphocytes Absolute Monocytes Absolute Eosinophils Absolute Basophils PT INR APTT Sodium Potassium Chloride Carbon Dioxide Anion Gap BUN Creatinine Est GFR ( Amer) Est GFR (Non-Af Amer) Glucose Calcium Total Bilirubin Direct Bilirubin Neonat Total Bilirubin Neonat Direct Bilirubin Neonat Indirect Bili AST ALT Alkaline Phosphatase Troponin I 0.018 Total Protein Albumin Aorta w/Runoff CTA 11/17/17 06:32 IMPRESSION: Aortoiliac inflow: 1. Patent aorta and common/external iliac arteries bilaterally. 2. 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 3. Ectasia of the distal left common iliac artery. SFA/popliteal: Right: Moderate calcified atherosclerotic plaque diffusely without hemodynamically significant stenoses. Left: 1. Diffuse calcified atherosclerotic plaque throughout the SFA. 2. 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 Runoff: Right: Patent three-vessel runoff. Left: Diminutive caliber single vessel posterior tibial artery runoff. Note: Results discussed with Dr. Montoya of the Emergency Department at 07.17 on November 17, 2017. 11/17/17 10:20 Vascular surgery in [place], Dr. Monroe has accepted the patient is an ER to ER transfer. 11/17/17 11:15 Patient has been seen and reevaluated. Remained stable for transfer at this time. - Vital Signs Vital signs: Temp Pulse Resp BP Pulse Ox 97.9 F 78 16 119/70 93 11/17/17 10:00 11/17/17 06:16 11/17/17 10:47 11/17/17 10:47 11/17/17 10:47 - Laboratory Result Diagrams: 11/17/17 06:41 11/17/17 06:41 Laboratory results interpreted by me: 11/17/17 11/17/17 06:41 06:41 WBC 11.5 H RBC 3.71 L Hgb 12.7 L Hct 37.5 L MCV 101 H MCH 34.3 H Absolute Neutrophils 8.9 H Sodium 136.8 L BUN 25 H Glucose 139 H Albumin 3.3 L Critical Care Note - Critical Care Note Total time excluding time spent on procedures (mins): 60 Comments: Hypotension, vascular emergency, consultation with specialists, coordination of transfer of care. Discharge - Discharge Clinical Impression: Popliteal artery occlusion, left Condition: Fair Disposition: [facility] Referrals: TOÑO AVERY MD [Primary Care Provider] - Follow up as needed
[2017-11-17 06:53] LABS: ABSOLUTE BASOPHILS # (AUTO) 0.1 10^3/uL (0.0-0.2); ABSOLUTE EOSINOPHILS # (AUTO) 0.1 10^3/uL (0.0-0.6); ABSOLUTE LYMPHOCYTES (AUTO) 1.5 10^3/uL (0.5-4.7); ABSOLUTE MONOCYTES (AUTO) 0.9 10^3/uL (0.1-1.4); ABSOLUTE NEUT (AUTO) 8.9 10^3/uL (1.7-8.2); BASOPHILS % (AUTO) 0.6 % (0-2); HEMATOCRIT 37.5 % (37.9-51.0); HEMOGLOBIN 12.7 g/dL (13.5-17.0); LYMPHOCYTES % (AUTO) 13.2 % (13-45); MEAN CORPUSCULAR HEMOGLOBIN 34.3 pg (27.0-33.4); MEAN CORPUSCULAR HGB CONC 33.9 g/dL (32.0-36.0); MEAN CORPUSCULAR VOLUME 101 fl (80-97); MONOCYTES % (AUTO) 7.9 % (3-13); PLATELET COUNT 445 10^3/uL (150-450); RED BLOOD COUNT 3.71 10^6/uL (4.35-5.55); RED CELL DISTRIBUTION WIDTH 13.1 % (11.5-14.0); SEGMENTED NEUTROPHILS % (AUTO) 77.3 % (42-78); TOTAL CELLS COUNTED % (AUTO) 100 %; WHITE BLOOD COUNT 11.5 10^3/uL (4.0-10.5)
[2017-11-17 07:01] LABS: INTERNATIONAL RATION (INR) 1.04; PROTHROMBIN TIME 14.1 SEC (11.4-15.4)
[2017-11-17 07:02] LABS: PARTIAL THROMBOPLASTIN TIME 34.5 SEC (23.5-35.8)
[2017-11-17 07:08] LABS: ALANINE AMINOTRANSFERASE 33 U/L (21-72); ALBUMIN 3.3 g/dL (3.5-5.0); ALKALINE PHOSPHATASE 81 U/L (38-126); ANION GAP 8 (5-19); ASPARTATE AMINO TRANSFERASE 25 U/L (17-59); BILIRUBIN,DIRECT 0.2 mg/dL (0.0-0.4); BILIRUBIN,TOTAL 0.2 mg/dL (0.2-1.3); BLOOD UREA NITROGEN 25 mg/dL (7-20); CALCIUM 9.1 mg/dL (8.4-10.2); CARBON DIOXIDE 29 mmol/L (22-30); CHLORIDE 100 mmol/L (98-107); GLUCOSE 139 mg/dL (75-110); POTASSIUM 4.4 mmol/L (3.6-5.0); SODIUM 136.8 mmol/L (137-145); TOTAL PROTEIN 6.4 g/dL (6.3-8.2)
--- NOTE | 2017-11-17 08:18 | RADIOLOGY REPORT (SQ) ---
EXAM DESCRIPTION: 11/17/2017 7:03 AM CDT CLINICAL HISTORY: 77 years, Male, leg pain, hypotension COMPARISON: None TECHNIQUE: Following the administration of intravenous contrast, volumetric CT acquisition was performed through the abdomen/pelvis and bilateral lower extremities. Images in the axial, coronal, and sagittal planes were presented for interpretation. Volume rendered 3D images were also presented for interpretation. This exam was performed according to our departmental dose-optimization program, which includes automated exposure control, adjustment of the mA and/or kV according to patient size and/or use of iterative reconstruction technique. FINDINGS: The pertinent aortic measurements are as follows: Diaphragmatic hiatus : 2.2 cm. Suprarenal aorta : 2.2 cm. Proximal infrarenal aorta : 1.8 cm. Mid infrarenal aorta : 1.7 cm. Aortic bifurcation : 1.5 cm. Right common iliac artery: Moderate calcified atherosclerotic plaque and otherwise patent. Right external iliac artery: Extensive calcified atherosclerotic plaque and otherwise patent. Right internal iliac artery: Aneurysmal dilation of the mid internal iliac artery on axial image 98 measuring up to 1.1 cm in diameter (the normal proximal segment measures 6 mm). Left common iliac artery: Moderate calcified atherosclerotic plaque and otherwise patent. There is mild ectasia of the distal common iliac artery measuring 1.2 cm in diameter (the normal proximal segment measures 9 mm) Left external iliac artery: Moderate calcified atherosclerotic plaque and otherwise patent. Left internal iliac artery: Moderate calcified atherosclerotic plaque and otherwise patent. Right Common Femoral Artery: Moderate calcified atherosclerotic plaque and otherwise patent. Right Proximal SFA: Moderate calcified atherosclerotic plaque and otherwise patent. Right Mid SFA: Moderate calcified atherosclerotic plaque and otherwise patent. Right Distal SFA: Moderate calcified atherosclerotic plaque and otherwise patent. Right Popliteal : Moderate calcified atherosclerotic plaque with up to 50% narrowing at the level of the tibial plateau best seen on axial image 297.. Right Trifurcation : Patent. Right Anterior Tibial : Moderate calcified atherosclerotic plaque proximally with up to 50% narrowing.. Right Posterior Tibial : Patent. Right Peroneal : Patent. Left Common Femoral Artery: Moderate calcified atherosclerotic plaque and otherwise patent. Left Proximal SFA: Moderate calcified atherosclerotic plaque and otherwise patent. Left Mid SFA: Moderate calcified atherosclerotic plaque and otherwise patent. Left Distal SFA: Moderate calcified atherosclerotic plaque and otherwise patent. Left Popliteal : Diffuse occlusion with an occluded popliteal artery stent. Left Trifurcation : Occluded. Left Anterior Tibial : Collateral flow proximally without continue is runoff. Left Posterior Tibial : Diminutive in caliber and otherwise patent. Left Peroneal : Not visualized. Additional findings: Asymmetric muscular atrophy of the left calf. Multiple hepatic cysts. Bilateral renal cortical cysts. IMPRESSION: Aortoiliac inflow: 1. Patent aorta and common/external iliac arteries bilaterally. 2. 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 3. Ectasia of the distal left common iliac artery. SFA/popliteal: Right: Moderate calcified atherosclerotic plaque diffusely without hemodynamically significant stenoses. Left: 1. Diffuse calcified atherosclerotic plaque throughout the SFA. 2. 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 Runoff: Right: Patent three-vessel runoff. Left: Diminutive caliber single vessel posterior tibial artery runoff. Note: Results discussed with Dr. Montoya of the Emergency Department at 07.17 on November 17, 2017.
--- NOTE | 2017-11-17 08:25 | EKG REPORT ---
SEVERITY:- ABNORMAL ECG - SINUS RHYTHM VENTRICULAR PREMATURE COMPLEX INFERIOR INFARCT, AGE INDETERMINATE : Confirmed by: Rebeka Tuttle 17-Nov-2017 08:25:07
[2017-11-17] MEDS ORDERED: KETOROLAC TROMETHAMINE INJ/PF 30 MG/1 ML SDV IV ONE (09:16)
[2017-11-17] MEDS ORDERED: HEPARIN SOD (PORCINE) 1,000 UNIT/ML 10 ML VIAL IV PRN (09:52)
[2017-11-17 10:55] LABS: APPEARANCE,URINE CLEAR; BILIRUBIN,URINE NEGATIVE (NEGATIVE); COLOR,URINE YELLOW; GLUCOSE, URINE NEGATIVE (NEGATIVE); KETONES,URINE NEGATIVE (NEGATIVE); LEUKOCYTE ESTERASE,URINE NEGATIVE (NEGATIVE); NITRITE,URINE NEGATIVE (NEGATIVE); PROTEIN,URINE NEGATIVE (NEGATIVE); URINE SPECIFIC GRAVITY 1.025; UROBILINOGEN,URINE NEGATIVE mg/dL (<2.0)
[2017-11-17 11:18] VITALS: BP 119/61
== END 2017-11-17 11:17 | disposition short-term general hospital (02) ==
LOC: ER 06:05
DX: I77.1 Stricture of artery (principal); I70.292 Other atherosclerosis of native arteries of extremities, left leg
CPT/HCPCS: 93005; 99284; 36415; 85025; 85610; 85730; 80053; 81001; 84484; 75635; 93010; J1644 ×2; J1885

== ENCOUNTER 2017-12-13 14:08 | Emergency (ER) | payer OTHER, MEDICARE ==
[2017-12-13] MEDS ORDERED: CEPHALEXIN 500 MG CAPSULE PO ONE (14:43)
--- NOTE | 2017-12-13 15:22 | ER Document Report ---
ED General - General Chief Complaint: Wound Recheck Stated Complaint: WOUND CHECK Time Seen by Provider: 12/13/17 14:33 TRAVEL OUTSIDE OF THE [place] IN LAST 30 DAYS: No - HPI Patient complains to provider of: Wound dehiscence Notes: Patient coming in for possible wound dehiscence patient had vascular surgery performed at [facility] in approximate 2 weeks ago states that the wound above his knee is starting to have the sutures opened up with drainage. Patient denies any fevers chills nausea vomiting diarrhea. Patient denies any trauma to the area - Related Data Allergies/Adverse Reactions: No Known Allergies Allergy (Verified 12/13/17 14:10) Past Medical History - Social History Smoking Status: Unknown if Ever Smoked Family History: Reviewed & Not Pertinent Patient has suicidal ideation: No Patient has homicidal ideation: No - Past Medical History Cardiac Medical History: Reports: Hx Congestive Heart Failure - Questionable congestive heart failure, Hx Coronary Artery Disease, Hx Heart Attack - 7 yrs ago, Hx Hypercholesterolemia, Hx Hypertension - medicated Pulmonary Medical History: Reports: Hx COPD Denies: Hx Asthma, Hx Bronchitis, Hx Pneumonia Neurological Medical History: Denies: Hx Cerebrovascular Accident, Hx Seizures Renal/ Medical History: Denies: Hx Peritoneal Dialysis Malignancy Medical History: Reports Hx Colorectal Cancer - Has had surgery and chemotherapy. GI Medical History: Denies: Hx Hepatitis, Hx Hiatal Hernia, Hx Ulcer Musculoskeletal Medical History: Reports Hx Arthritis Infectious Medical History: Denies: Hx Hepatitis Past Surgical History: Reports: Hx Abdominal Surgery - colon, Hx Appendectomy, Hx Bowel Surgery, Hx Cardiac Catheterization, Hx Cardiac Surgery - stent and pacemaker, port placement, Hx Coronary Stent, Hx Internal Defibrillator, Hx Pacemaker - pacer/defib, Hx Vascular Surgery - Chemo-Port placement, Other - Subdural hematoma surgery a year or so ago.. Denies: Hx Open Heart Surgery - Immunizations Hx Diphtheria, Pertussis, Tetanus Vaccination: No Review of Systems - Review of Systems Constitutional: No symptoms reported EENT: No symptoms reported Cardiovascular: No symptoms reported Respiratory: No symptoms reported Gastrointestinal: No symptoms reported Genitourinary: No symptoms reported Male Genitourinary: No symptoms reported Musculoskeletal: Other - Wound dehiscence Skin: No symptoms reported Hematologic/Lymphatic: No symptoms reported Neurological/Psychological: No symptoms reported -: Yes All other systems reviewed and negative Physical Exam - Vital signs Vitals: Temp Pulse Resp BP Pulse Ox 98.3 F 96 18 128/69 H 99 12/13/17 14:16 12/13/17 14:16 12/13/17 14:16 12/13/17 14:16 12/13/17 14:16 Interpretation: Normal - General General appearance: Appears well, Alert - HEENT Head: Normocephalic, Atraumatic Eyes: Normal Pupils: PERRL - Respiratory Respiratory status: No respiratory distress Chest status: Nontender Breath sounds: Normal Chest palpation: Normal - Cardiovascular Rhythm: Regular Heart sounds: Normal auscultation Murmur: No - Abdominal Inspection: Normal Distension: No distension Bowel sounds: Normal Tenderness: Nontender Organomegaly: No organomegaly - Back Back: Normal, Nontender - Extremities General upper extremity: Normal inspection, Nontender, Normal color, Normal ROM , Normal temperature General lower extremity: Nontender, Normal color, Normal ROM, Normal temperature , Normal weight bearing, Luh's sign. No: Normal inspection - Patient with a wound above the left knee there is a small area approximate 1 cm of dehiscence with serosanguineous drainage expression of possibly a small amount of purulent material can be performed however not a great amount slight erythema however no warmth of the wound - Neurological Neuro grossly intact: Yes Cognition: Normal Orientation: AAOx4 Lowman Coma Scale Eye Opening: Spontaneous Lowman Coma Scale Verbal: Oriented Debora Coma Scale Motor: Obeys Commands Debora Coma Scale Total: 15 Speech: Normal Motor strength normal: LUE, RUE, LLE, RLE Sensory: Normal - Psychological Associated symptoms: Normal affect, Normal mood - Skin Skin Temperature: Warm Skin Moisture: Dry Skin Color: Normal Course - Re-evaluation Re-evalutation: 12/13/17 15:23 Concern for possible infection I did discuss with Dr. Monroe at [facility]. Requesting that the patient be transferred to the hospital at this time. I discussed this with the patient who at this time elects to go by private vehicle stating that he knows the way to the hospital and knows where the ER is located at patient states he feels safe in driving to violent. At this time vital signs are normal there is no signs of significant pathology the wound was redressed a wound culture was sent however I would hold off on antibiotics at this time as patient does not look to be septic patient understands instructions to go directly to the ER - Vital Signs Vital signs: Temp Pulse Resp BP Pulse Ox 98.3 F 96 18 128/69 H 99 12/13/17 14:16 12/13/17 14:16 12/13/17 14:16 12/13/17 14:16 12/13/17 14:16 Discharge - Discharge Clinical Impression: Wound dehiscence Condition: Good Disposition: [facility] Additional Instructions: I discussed your case with Dr. Monroe at [facility]. He has requested that we transfer you to evaluate for further evaluation please go directly to their ER for further evaluation Referrals: TOÑO AVERY MD [Primary Care Provider] - Follow up as needed
[2017-12-13 15:29] VITALS: BP 127/79
== END 2017-12-13 15:36 | disposition short-term general hospital (02) ==
LOC: ER 14:08
DX: T81.31XA Disruption of external operation (surgical) wound, not elsewhere classified, initial encounter (principal); Y83.8 Other surgical procedures as the cause of abnormal reaction of the patient, or of later complication, without mention of misadventure at the time of the procedure; I25.10 Atherosclerotic heart disease of native coronary artery without angina pectoris; I10 Essential (primary) hypertension; J44.9 Chronic obstructive pulmonary disease, unspecified; Z85.048 Personal history of other malignant neoplasm of rectum, rectosigmoid junction, and anus; Z92.21 Personal history of antineoplastic chemotherapy; Z95.5 Presence of coronary angioplasty implant and graft; Z95.810 Presence of automatic (implantable) cardiac defibrillator
CPT/HCPCS: 87070; 87077; 87186; 87205; 99284

== ENCOUNTER 2018-11-29 18:37 | Inpatient (IN) | payer MEDICARE, OTHER ==
--- NOTE | 2018-11-29 19:16 | ER Document Report ---
ED Medical Screen (RME) - General Chief Complaint: Headache <24 hrs old Stated Complaint: HEADACHE Time Seen by Provider: 11/29/18 19:09 Primary Care Provider: TOÑO AVERY MD [Primary Care Provider] - Follow up as needed Mode of Arrival: Ambulatory Information source: Patient Notes: Patient presents emergency department with reports of black stools recently. Patient also complains of cough for the past year and a headache that comes and goes. Reports sometimes he coughs so bad he vomits afterwards. He reports that cough is been going on for a year and he thinks it is tied to the medications he takes. Denies abdominal pain. I have greeted and performed a rapid initial assessment of this patient. A comprehensive ED assessment and evaluation of the patient, analysis of test results and completion of the medical decision making process will be conducted by additional ED providers. Dictation of this chart was performed using voice recognition software; therefore, there may be some unintended grammatical errors. TRAVEL OUTSIDE OF THE [place] IN LAST 30 DAYS: No - Related Data Allergies/Adverse Reactions: No Known Allergies Allergy (Verified 12/13/17 14:10) Past Medical History - Past Medical History Cardiac Medical History: Reports: Hx Congestive Heart Failure - Questionable congestive heart failure, Hx Coronary Artery Disease, Hx Heart Attack - 7 yrs ago, Hx Hypercholesterolemia, Hx Hypertension - medicated Pulmonary Medical History: Reports: Hx COPD Denies: Hx Asthma, Hx Bronchitis, Hx Pneumonia Neurological Medical History: Denies: Hx Cerebrovascular Accident, Hx Seizures Renal/ Medical History: Denies: Hx Peritoneal Dialysis Malignancy Medical History: Reports Hx Colorectal Cancer - Has had surgery and chemotherapy. GI Medical History: Denies: Hx Hepatitis, Hx Hiatal Hernia, Hx Ulcer Musculoskeltal Medical History: Reports Hx Arthritis Infectious Medical History: Denies: Hx Hepatitis Past Surgical History: Reports: Hx Abdominal Surgery - colon, Hx Appendectomy, Hx Bowel Surgery, Hx Cardiac Catheterization, Hx Cardiac Surgery - stent and pacemaker, port placement, Hx Coronary Stent, Hx Internal Defibrillator, Hx Pacemaker - pacer/defib, Hx Vascular Surgery - Chemo-Port placement, Other - Subdural hematoma surgery a year or so ago.. Denies: Hx Open Heart Surgery - Immunizations Hx Diphtheria, Pertussis, Tetanus Vaccination: No Physical Exam - Vital signs Vitals: Temp Pulse Resp BP Pulse Ox 97.6 F 67 24 H 113/65 97 11/29/18 18:49 11/29/18 18:49 11/29/18 18:49 11/29/18 18:49 11/29/18 18:49 Course - Vital Signs Vital signs: Temp Pulse Resp BP Pulse Ox 97.6 F 67 24 H 113/65 97 11/29/18 18:49 11/29/18 18:49 11/29/18 18:49 11/29/18 18:49 11/29/18 18:49 Doctor's Discharge - Discharge Referrals: TOÑO AVERY MD [Primary Care Provider] - Follow up as needed
[2018-11-29 20:27] LABS: ABSOLUTE MONOCYTES (AUTO) 0.8 10^3/uL (0.1-1.4); BASOPHILS % (AUTO) 0.3 % (0-2); EOSINOPHILS % (AUTO) 0.1 % (0-6); HEMATOCRIT 25.9 % (37.9-51.0); HEMOGLOBIN 8.8 g/dL (13.5-17.0); LYMPHOCYTES % (AUTO) 13.4 % (13-45); MEAN CORPUSCULAR HEMOGLOBIN 34.3 pg (27.0-33.4); MEAN CORPUSCULAR VOLUME 101 fl (80-97); MONOCYTES % (AUTO) 5.2 % (3-13); PLATELET COUNT 206 10^3/uL (150-450); RED BLOOD COUNT 2.56 10^6/uL (4.35-5.55); RED CELL DISTRIBUTION WIDTH 13.9 % (11.5-14.0); TOTAL CELLS COUNTED % (AUTO) 100 %; WHITE BLOOD COUNT 14.8 10^3/uL (4.0-10.5)
[2018-11-29 20:36] LABS: ALBUMIN 3.6 g/dL (3.5-5.0); ALKALINE PHOSPHATASE 63 U/L (38-126); ANION GAP 10 (5-19); ASPARTATE AMINO TRANSFERASE 19 U/L (17-59); BILIRUBIN,DIRECT 0.2 mg/dL (0.0-0.4); BILIRUBIN,TOTAL 0.4 mg/dL (0.2-1.3); BLOOD UREA NITROGEN 76 mg/dL (7-20); CALCIUM 9.6 mg/dL (8.4-10.2); CARBON DIOXIDE 21 mmol/L (22-30); CHLORIDE 102 mmol/L (98-107); GLUCOSE 138 mg/dL (75-110); POTASSIUM 4.9 mmol/L (3.6-5.0); TOTAL PROTEIN 6.1 g/dL (6.3-8.2)
[2018-11-29] MEDS ORDERED: PANTOPRAZOLE SODIUM 40 MG VIAL IV ONE (20:53)
--- NOTE | 2018-11-29 20:54 | ER Document Report ---
ED General - General Chief Complaint: Headache Stated Complaint: HEADACHE Time Seen by Provider: 11/29/18 19:09 Mode of Arrival: Ambulatory Notes: Patient is a 78-year-old male that comes to the emergency department for chief complaint of weakness, shakiness, and black stools for the past 3 days or so. He denies abdominal pain, chest pain, difficulty breathing, passing out. He is on Plavix. He does not recall history of GI bleed but he does have a history of remote colon cancer status post surgery and chemotherapy. Remaining medical history includes VA, COPD, CHF. He does have a DNR. His is at bedside. TRAVEL OUTSIDE OF THE [place] IN LAST 30 DAYS: No - Related Data Allergies/Adverse Reactions: No Known Allergies Allergy (Verified 12/13/17 14:10) Past Medical History - General Information source: Patient - Social History Smoking Status: Former Smoker Chew tobacco use (# tins/day): No Frequency of alcohol use: every evening- 4-5 oz bourbon Drug Abuse: None Family History: Reviewed & Not Pertinent Patient has suicidal ideation: No Patient has homicidal ideation: No - Past Medical History Cardiac Medical History: Reports: Hx Congestive Heart Failure - Questionable congestive heart failure, Hx Coronary Artery Disease, Hx Heart Attack - 7 yrs ago, Hx Hypercholesterolemia, Hx Hypertension - medicated Pulmonary Medical History: Reports: Hx COPD Denies: Hx Asthma, Hx Bronchitis, Hx Pneumonia Neurological Medical History: Denies: Hx Cerebrovascular Accident, Hx Seizures Renal/ Medical History: Denies: Hx Peritoneal Dialysis Malignancy Medical History: Reports Hx Colorectal Cancer - Has had surgery and chemotherapy. GI Medical History: Denies: Hx Hepatitis, Hx Hiatal Hernia, Hx Ulcer Musculoskeletal Medical History: Reports Hx Arthritis Infectious Medical History: Denies: Hx Hepatitis Past Surgical History: Reports: Hx Abdominal Surgery - colon, Hx Appendectomy, Hx Bowel Surgery, Hx Cardiac Catheterization, Hx Cardiac Surgery - stent and pacemaker, port placement, Hx Coronary Stent, Hx Internal Defibrillator, Hx Pace maker - pacer/defib, Hx Vascular Surgery - Chemo-Port placement, Other - Subdural hematoma surgery a year or so ago.. Denies: Hx Open Heart Surgery - Immunizations Hx Diphtheria, Pertussis, Tetanus Vaccination: No Review of Systems - Review of Systems Constitutional: See HPI EENT: No symptoms reported Cardiovascular: See HPI Respiratory: No symptoms reported Gastrointestinal: See HPI Genitourinary: No symptoms reported Male Genitourinary: No symptoms reported Musculoskeletal: No symptoms reported Skin: No symptoms reported Hematologic/Lymphatic: No symptoms reported Neurological/Psychological: No symptoms reported Physical Exam - Vital signs Vitals: Temp Pulse Resp BP Pulse Ox 97.6 F 67 24 H 113/65 97 11/29/18 18:49 11/29/18 18:49 11/29/18 18:49 11/29/18 18:49 11/29/18 18:49 - Notes Notes: Patient is borderline tachycardic but he is not hypotensive. Patient does have obvious black stools on evaluation at bedside. He has not had any recent bowel movements fortunately. He has no abdominal tenderness. Clinical impression is upper GI bleed in an elderly patient who is on Plavix. Starting Protonix bolus and drip. CBC shows hemoglobin of 8.8, this is significantly decreased from previous hemo globins which averaged at 12. Patient does have history of frequent alcohol use, anemia is macrocytic. Chemistry nonspecific except BUN is elevated and creatinine is slightly elevated. Discussed with and patient. Patient will require admission for further evaluation. They state agreement with plan. Discussed with Dr. Bee, patient will be admitted to the ICU for upper GI bleed, he recommends that patient be transfused 2 units of packed red blood cells. Order placed. Course - Vital Signs Vital signs: Temp Pulse Resp BP Pulse Ox 98.5 F 98 19 128/74 H 98 11/30/18 04:37 11/30/18 04:37 11/30/18 04:37 11/30/18 04:37 11/30/18 04:37 - Laboratory Result Diagrams: 11/29/18 19:46 11/29/18 19:46 Laboratory results interpreted by me: 11/29/18 11/29/18 11/29/18 19:46 19:46 19:46 WBC 14.8 H RBC 2.56 L Hgb 8.8 L Hct 25.9 L MCV 101 H MCH 34.3 H Absolute Neuts (auto) 12.0 H Seg Neutrophils % 81.0 H PT Sodium 133.2 L Carbon Dioxide 21 L BUN 76 H Creatinine 1.64 H Est GFR ( Amer) 49 L Est GFR (MDRD) Non-Af 41 L Glucose 138 H Total Protein 6.1 L Ur Leukocyte Esterase SMALL H Crossmatch 11/29/18 11/29/18 22:55 22:55 WBC RBC Hgb Hct MCV MCH Absolute Neuts (auto) Seg Neutrophils % PT 15.9 H Sodium Carbon Dioxide BUN Creatinine Est GFR ( Amer) Est GFR (MDRD) Non-Af Glucose Total Protein Ur Leukocyte Esterase Crossmatch See Detail Discharge - Discharge Clinical Impression: Upper GI bleed, Symptomatic anemia, Lightheaded Condition: Fair Disposition: ADMITTED INPATIENT Admitting Provider: Rohit (Hospitalist) Unit Admitted: ICU
[2018-11-29] MEDS: PANTOPRAZOLE SODIUM 40 MG VIAL IV PRN (21:36)
--- NOTE | 2018-11-29 22:39 | RADIOLOGY REPORT (SQ) ---
EXAM DESCRIPTION: [facility]: XR CHEST 1 VIEW CLINICAL HISTORY: 78 years Male, weakness COMPARISON: 11/03/2017 FINDINGS: Lungs are clear, with no focal infiltrate, pneumothorax, or pleural effusion. Right-sided port remains in place, tip in the SVC. AICD remains in place, with intact leads. Mild aortic calcification is again noted. Heart size is normal. Multiple old right rib fractures are again noted. IMPRESSION: 1. No acute pulmonary findings. 2. AICD
[2018-11-29 22:55] LABS: APPEARANCE,URINE SLIGHTLY-CLOUDY; BILIRUBIN,URINE NEGATIVE (NEGATIVE); COLOR,URINE YELLOW; GLUCOSE, URINE NEGATIVE (NEGATIVE); KETONES,URINE NEGATIVE (NEGATIVE); LEUKOCYTE ESTERASE,URINE SMALL (NEGATIVE); NITRITE,URINE NEGATIVE (NEGATIVE); PROTEIN,URINE NEGATIVE (NEGATIVE); URINE SPECIFIC GRAVITY 1.016; UROBILINOGEN,URINE NEGATIVE mg/dL (<2.0)
[2018-11-29] MEDS ORDERED: NORMAL SALINE 250 ML IV PRN ×2 (22:55)
[2018-11-29] MEDS ORDERED: ONDANSETRON HCL INJ/PF 4 MG/2 ML SDV IV PRN (22:57)
[2018-11-29] MEDS ORDERED: ACETAMINOPHEN 650 MG SUPP.RECT PR PRN (22:57)
[2018-11-29] MEDS ORDERED: IPRATROPIUM/ALBUTEROL 0.5-2.5 MG/3 ML AMPUL NEB PRN (22:57)
[2018-11-29 23:21] LABS: INTERNATIONAL RATION (INR) 1.26; PROTHROMBIN TIME 15.9 SEC (11.4-15.4)
[2018-11-29 23:21] LABS: IRON(TIBC) 176.9 ug/dL (49-181)
[2018-11-29 23:22] LABS: PARTIAL THROMBOPLASTIN TIME 30.9 SEC (23.5-35.8)
[2018-11-29 23:27] LABS: RETICULOCYTE COUNT (AUTO) 1.97 % (0.66-2.85)
[2018-11-30] MEDS ORDERED: LORAZEPAM INJ 2 MG/1 ML VIAL IV PRN (00:03)
--- NOTE | 2018-11-30 05:31 | PDOC H&P ---
History of Present Illness Admission Date/PCP: 11/29/18 23:07 TOÑO AVERY MD Patient complains of: Black stools History of Present Illness: EDEN FLORES is a 78 year old male with a past medical history of coronary artery disease, status post coronary stenting and AICD, tobacco, colon cancer status post resection believed to be cancer free and alcohol dependence. He presents with fatigue and 3 or 4 days of black stools prompting evaluation emergency room where he is found to have a drop of his hemoglobin of 8.8 which is 4 point lower than 12 days ago. He started on Protonix, ordered 2 units of packed red blood cells and referred to the hospitalist for admission. He denies chest pain shortness of breath nausea vomiting or abdominal pain. He denies recent change in medication regiment. Past Medical History Cardiac Medical History: Reports: Congestive Heart Failure - Questionable congestive heart failure, Coronary Artery Disease, Myocardial Infarction - 7 yrs ago, Hyperlipidema, Hypertension - medicated Pulmonary Medical History: Reports: Chronic Obstructive Pulmonary Disease (COPD) Denies: Asthma, Bronchitis, Pneumonia Neurological Medical History: Denies: Seizures Malignancy Medical History: Reports: Colorectal Cancer - Has had surgery and chemotherapy. GI Medical History: Denies: Hepatitis, Hiatal Hernia Musculoskeltal Medical History: Reports: Arthritis Hematology: Denies: Anemia, Sickle Cell Disease Past Surgical History Past Surgical History: Reports: Appendectomy, Cardiac Catheterization, Coronary Stent, Internal Defibrillator, Pacemaker - pacer/defib, Vascular Surgery - Chemo-Port placement, Other - Subdural hematoma surgery a year or so ago. Social History Information Source: Patient, Relative, Emergency Med Personnel, [facility] Records Lives with: Spouse/Significant other Smoking Status: Current Every Day Smoker Frequency of Alcohol Use: Heavy Amount of Alcoholic Beverages Per Day: 6 to 8 ounces of whiskey per day Hx Recreational Drug Use: Yes Hx Prescription Drug Abuse: No - Advance Directive Resuscitation Status: Do Not Resuscitate Family History Family History: Hypertension, Other - Brother with recent upper GI bleed Parental Family History Reviewed: Yes Children Family History Reviewed: Yes Sibling(s) Family History Reviewed.: Yes Medication/Allergy Home Medications: Clopidogrel Bisulfate [Plavix 75 Mg Tablet] 75 mg PO DAILY 11/12/11 Metoprolol Tartrate 100 mg PO Q12 11/12/11 Atorvastatin Calcium [Lipitor 80 mg Tablet] 80 mg PO DAILY 05/19/15 Aspirin [Aspirin 81 mg Chewable Tablet] 81 mg PO DAILY 11/16/17 Ipratropium/Albuterol Sulfate [Combivent Respimat 4 gm Mdi] 1 puff IH Q6 11/16/17 Sacubitril/Valsartan [Entresto 97 mg-103 mg Tablet] 1 tab PO Q12 11/17/17 Spironolactone [Aldactone 25 mg Tablet] 25 mg PO DAILY 11/17/17 Allergies/Adverse Reactions: No Known Allergies Allergy (Verified 12/13/17 14:10) Review of Systems Constitutional: PRESENT: as per HPI, fatigue, weakness. ABSENT: chills, fever(s), headache(s), weight gain, weight loss Eyes: ABSENT: visual disturbances Ears: ABSENT: hearing changes Cardiovascular: ABSENT: chest pain, dyspnea on exertion, edema, orthropnea, palpitations Respiratory: ABSENT: cough, hemoptysis Gastrointestinal: PRESENT: melena. ABSENT: abdominal pain, constipation, diarrhea, dysphagia, heartburn, hematemesis, hematochezia, nausea, vomiting Genitourinary: ABSENT: dysuria, hematuria Musculoskeletal: PRESENT: muscle weakness. ABSENT: joint swelling Integumentary: ABSENT: rash, wounds Neurological: ABSENT: abnormal gait, abnormal speech, confusion, dizziness, focal weakness, syncope Psychiatric: ABSENT: anxiety, depression, homidical ideation, suicidal ideation Endocrine: ABSENT: cold intolerance, heat intolerance, polydipsia, polyuria Hematologic/Lymphatic: ABSENT: easy bleeding, easy bruising Physical Exam Vital Signs: Temp Pulse Resp BP Pulse Ox 98.5 F 98 19 128/74 H 98 11/30/18 04:37 11/30/18 04:37 11/30/18 04:37 11/30/18 04:37 11/30/18 04:37 Intake & Output 11/28/18 11/29/18 11/30/18 11:59 11:59 11:59 Intake Total 650 Balance 650 Weight 85.5 kg General appearance: PRESENT: no acute distress, cooperative, mild distress, well-developed, well-nourished Head exam: PRESENT: atraumatic, normocephalic Eye exam: PRESENT: conjunctiva pink, EOMI, PERRLA. ABSENT: scleral icterus Ear exam: PRESENT: normal external ear exam Mouth exam: PRESENT: moist, tongue midline Neck exam: ABSENT: carotid bruit, JVD, lymphadenopathy, thyromegaly Respiratory exam: PRESENT: clear to auscultation caity. ABSENT: rales, rhonchi, wheezes Cardiovascular exam: PRESENT: RRR. ABSENT: diastolic murmur, rubs, systolic murmur Pulses: PRESENT: normal dorsalis pedis pul Vascular exam: PRESENT: normal capillary refill GI/Abdominal exam: PRESENT: normal bowel sounds, soft. ABSENT: distended, guarding, mass, organolmegaly, rebound, tenderness Rectal exam: PRESENT: deferred, heme (+) stool Extremities exam: PRESENT: full ROM. ABSENT: calf tenderness, clubbing, pedal edema Neurological exam: PRESENT: alert, awake, oriented to person, oriented to place, oriented to time, oriented to situation, CN II-XII grossly intact. ABSENT: motor sensory deficit Psychiatric exam: PRESENT: appropriate affect, normal mood. ABSENT: homicidal ideation, suicidal ideation Skin exam: PRESENT: dry, intact, warm. ABSENT: cyanosis, rash Results Laboratory Results: 11/29/18 19:46 11/29/18 19:46 11/29/18 11/29/18 11/29/18 19:46 19:46 19:46 WBC 14.8 H RBC 2.56 L Hgb 8.8 L Hct 25.9 L MCV 101 H MCH 34.3 H MCHC 34.0 RDW 13.9 Plt Count 206 Seg Neutrophils % 81.0 H Retic Count (auto) Sodium 133.2 L Potassium 4.9 Chloride 102 Carbon Dioxide 21 L Anion Gap 10 BUN 76 H Creatinine 1.64 H Est GFR ( Amer) 49 L Glucose 138 H Calcium 9.6 Iron TIBC % Saturation Ferritin Total Bilirubin 0.4 AST 19 Alkaline Phosphatase 63 Total Protein 6.1 L Albumin 3.6 Vitamin B12 Folate Urine Color YELLOW Urine Appearance SLIGHTLY-CLOUDY Urine pH 5.0 Ur Specific [place] 1.016 Urine Protein NEGATIVE Urine Glucose (UA) NEGATIVE Urine Ketones NEGATIVE Urine Blood NEGATIVE Urine Nitrite NEGATIVE Ur Leukocyte Esterase SMALL H Urine WBC (Auto) 7 Urine RBC (Auto) 1 Blood Type Antibody Screen 11/29/18 11/29/18 11/29/18 19:46 19:46 22:17 WBC RBC Hgb Hct MCV MCH MCHC RDW Plt Count Seg Neutrophils % Retic Count (auto) 1.97 Sodium Potassium Chloride Carbon Dioxide Anion Gap BUN Creatinine Est GFR ( Amer) Glucose Calcium Iron 176.9 TIBC 289 % Saturation 61 Ferritin 122.00 Total Bilirubin AST Alkaline Phosphatase Total Protein Albumin Vitamin B12 330.0 Folate 13.90 Urine Color Urine Appearance Urine pH Ur Specific [place] Urine Protein Urine Glucose (UA) Urine Ketones Urine Blood Urine Nitrite Ur Leukocyte Esterase Urine WBC (Auto) Urine RBC (Auto) Blood Type Cancelled Antibody Screen Cancelled 11/29/18 22:55 WBC RBC Hgb Hct MCV MCH MCHC RDW Plt Count Seg Neutrophils % Retic Count (auto) Sodium Potassium Chloride Carbon Dioxide Anion Gap BUN Creatinine Est GFR ( Amer) Glucose Calcium Iron TIBC % Saturation Ferritin Total Bilirubin AST Alkaline Phosphatase Total Protein Albumin Vitamin B12 Folate Urine Color Urine Appearance Urine pH Ur Specific [place] Urine Protein Urine Glucose (UA) Urine Ketones Urine Blood Urine Nitrite Ur Leukocyte Esterase Urine WBC (Auto) Urine RBC (Auto) Blood Type B POSITIVE Antibody Screen NEGATIVE 11/29/18 19:46 Troponin I 0.020 Impressions: Chest X-Ray 11/29/18 20:52 IMPRESSION: 1. No acute pulmonary findings. 2. AICD Assessment and Plan - Diagnosis (1) Symptomatic anemia Is this a current diagnosis for this admission?: Yes Plan: Elevated BUN, tobacco and alcohol with family history of upper GI bleed. Given tachycardia with history of coronary disease he is ordered 2 units of packed red blood cells. Admitted to the ICU for hemodynamic monitoring and possible emergent endoscopy, continue IV Protonix, follow-up CBC, anemia labs and GI consult. (2) Upper GI bleed Is this a current diagnosis for this admission?: Yes Plan: Please see #1 (3) Acute renal failure Is this a current diagnosis for this admission?: Yes Plan: Unclear cause, possible prerenal, NSAIDs, IV fluid challenge, avoid nephrotoxic meds and doses follow-up UA and chemistry (4) Alcohol dependence Is this a current diagnosis for this admission?: Yes Plan: Anticipate alcohol withdrawal given 's report of agitation without daily drinks. Thiamine, folate, Valium with Ativan PRN - Time Time Spent with patient: 35 or more minutes - Inpatient Certification Medical Necessity: Need Close Monitoring Due to Risk of Patient Decompensation
[2018-11-30 06:30] LABS: ABSOLUTE BASOPHILS # (AUTO) 0.1 10^3/uL (0.0-0.2); ABSOLUTE LYMPHOCYTES (AUTO) 1.8 10^3/uL (0.5-4.7); ABSOLUTE MONOCYTES (AUTO) 0.8 10^3/uL (0.1-1.4); ABSOLUTE NEUT (AUTO) 6.8 10^3/uL (1.7-8.2); BASOPHILS % (AUTO) 0.6 % (0-2); EOSINOPHILS % (AUTO) 0.4 % (0-6); HEMATOCRIT 28.4 % (37.9-51.0); HEMOGLOBIN 9.6 g/dL (13.5-17.0); LYMPHOCYTES % (AUTO) 19.2 % (13-45); MEAN CORPUSCULAR HEMOGLOBIN 31.3 pg (27.0-33.4); MEAN CORPUSCULAR HGB CONC 33.8 g/dL (32.0-36.0); MONOCYTES % (AUTO) 7.9 % (3-13); PLATELET COUNT 154 10^3/uL (150-450); RED BLOOD COUNT 3.06 10^6/uL (4.35-5.55); RED CELL DISTRIBUTION WIDTH 21.4 % (11.5-14.0); SEGMENTED NEUTROPHILS % (AUTO) 71.9 % (42-78); TOTAL CELLS COUNTED % (AUTO) 100 %; WHITE BLOOD COUNT 9.5 10^3/uL (4.0-10.5)
[2018-11-30 06:39] LABS: ANION GAP 6 (5-19); BLOOD UREA NITROGEN 72 mg/dL (7-20); CALCIUM 9.1 mg/dL (8.4-10.2); CARBON DIOXIDE 23 mmol/L (22-30); CHLORIDE 105 mmol/L (98-107); GLUCOSE 132 mg/dL (75-110); POTASSIUM 4.2 mmol/L (3.6-5.0)
[2018-11-30 06:41] LABS: MEAN CORPUSCULAR VOLUME 93 fl (80-97)
[2018-11-30] MEDS: PANTOPRAZOLE SODIUM 40 MG VIAL IV PRN (07:38)
--- NOTE | 2018-11-30 08:55 | PDOC CONSULTATION ---
Consultation Consult Date: 11/30/18 Provider Consulted: CLAUDINE PALOMINO Consult reason:: anemia, black stools History of Present Illness Admission Date/PCP: 11/29/18 23:07 TOÑO AVERY MD History of Present Illness: EDEN FLORES is a 78 year old male this is a patient who apparently has a personal history of colon cancer, s/p resection by Dr Lockwood I suspect that patient has been followed by Dr Cutler, since he was last GI of record presented to the ED with anemia and black stools does drink denies any NSAID use he was admitted to the ICU, his H/H is stable patient denies any chest pain or SOB I have asked to see patient to see if he needs GI intervention Past Medical History Cardiac Medical History: Reports: Congestive Heart Failure - Questionable congestive heart failure, Coronary Artery Disease, Myocardial Infarction - 7 yrs ago, Hyperlipidema, Hypertension - medicated Pulmonary Medical History: Reports: Chronic Obstructive Pulmonary Disease (COPD) Denies: Asthma, Bronchitis, Pneumonia Neurological Medical History: Denies: Seizures Malignancy Medical History: Reports: Colorectal Cancer - Has had surgery and chemotherapy. GI Medical History: Denies: Hepatitis, Hiatal Hernia Musculoskeltal Medical History: Reports: Arthritis Hematology: Denies: Anemia, Sickle Cell Disease Past Surgical History Past Surgical History: Reports: Appendectomy, Cardiac Catheterization, Coronary Stent, Internal Defibrillator, Pacemaker - pacer/defib, Vascular Surgery - Chemo-Port placement, Other - Subdural hematoma surgery a year or so ago. Social History Lives with: Spouse/Significant other Smoking Status: Former Smoker Frequency of Alcohol Use: Heavy Hx Recreational Drug Use: Yes Hx Prescription Drug Abuse: No - Advance Directive Resuscitation Status: Do Not Resuscitate Family History Family History: Reviewed & Not Pertinent Parental Family History Reviewed: Yes Children Family History Reviewed: Unknown Sibling(s) Family History Reviewed.: Unknown Medication/Allergy Allergies/Adverse Reactions: No Known Allergies Allergy (Verified 12/13/17 14:10) Review of Systems Constitutional: ABSENT: fever(s), headache(s), night sweats, weakness Ears: ABSENT: hearing changes Nose, Mouth, and Throat: ABSENT: mouth pain Cardiovascular: ABSENT: edema, orthropnea Gastrointestinal: ABSENT: diarrhea, dysphagia, hematochezia Genitourinary: ABSENT: dysuria, hematuria Musculoskeletal: ABSENT: deformity, joint swelling Integumentary: ABSENT: lesions, pruritus Neurological: ABSENT: syncope, tingling, tremor(s) Endocrine: ABSENT: polydipsia, polyphagia, polyuria Hematologic/Lymphatic: ABSENT: easy bruising Physical Exam Vital Signs: Temp Pulse Resp BP Pulse Ox 98.7 F 95 18 108/72 98 11/30/18 08:00 11/30/18 08:00 11/30/18 08:00 11/30/18 08:00 11/30/18 08:00 Intake & Output 11/29/18 11/30/18 12/01/18 06:59 06:59 06:59 Intake Total 650 Output Total 0 Balance 650 0 Weight 85.5 kg General appearance: PRESENT: no acute distress Head exam: PRESENT: atraumatic, normocephalic Eye exam: PRESENT: EOMI, PERRLA. ABSENT: nystagmus, periorbital swelling, scleral icterus Mouth exam: PRESENT: moist, neck supple Throat exam: ABSENT: tonsillar exudate, tonsillogmegaly Neck exam: ABSENT: meningismus, tenderness, thyromegaly Respiratory exam: PRESENT: symmetrical, unlabored Cardiovascular exam: PRESENT: RRR, +S1, +S2 GI/Abdominal exam: PRESENT: soft. ABSENT: rebound, rigid, tenderness Extremities exam: ABSENT: joint swelling, pedal edema Musculoskeletal exam: PRESENT: full ROM Neurological exam: PRESENT: oriented to time, oriented to situation, CN II-XII grossly intact Focused psych exam: ABSENT: restlessness Skin exam: PRESENT: normal color. ABSENT: mottled, pallor, urticaria, vesicles Results Laboratory Results: 11/30/18 06:04 11/30/18 06:04 11/29/18 11/29/18 11/29/18 19:46 19:46 19:46 WBC 14.8 H RBC 2.56 L Hgb 8.8 L Hct 25.9 L MCV 101 H MCH 34.3 H MCHC 34.0 RDW 13.9 Plt Count 206 Seg Neutrophils % 81.0 H Retic Count (auto) Sodium 133.2 L Potassium 4.9 Chloride 102 Carbon Dioxide 21 L Anion Gap 10 BUN 76 H Creatinine 1.64 H Est GFR ( Amer) 49 L Glucose 138 H Calcium 9.6 Iron TIBC % Saturation Ferritin Total Bilirubin 0.4 AST 19 Alkaline Phosphatase 63 Total Protein 6.1 L Albumin 3.6 Vitamin B12 Folate Urine Color YELLOW Urine Appearance SLIGHTLY-CLOUDY Urine pH 5.0 Ur Specific [place] 1.016 Urine Protein NEGATIVE Urine Glucose (UA) NEGATIVE Urine Ketones NEGATIVE Urine Blood NEGATIVE Urine Nitrite NEGATIVE Ur Leukocyte Esterase SMALL H Urine WBC (Auto) 7 Urine RBC (Auto) 1 Blood Type Antibody Screen 11/29/18 11/29/18 11/29/18 19:46 19:46 22:17 WBC RBC Hgb Hct MCV MCH MCHC RDW Plt Count Seg Neutrophils % Retic Count (auto) 1.97 Sodium Potassium Chloride Carbon Dioxide Anion Gap BUN Creatinine Est GFR ( Amer) Glucose Calcium Iron 176.9 TIBC 289 % Saturation 61 Ferritin 122.00 Total Bilirubin AST Alkaline Phosphatase Total Protein Albumin Vitamin B12 330.0 Folate 13.90 Urine Color Urine Appearance Urine pH Ur Specific [place] Urine Protein Urine Glucose (UA) Urine Ketones Urine Blood Urine Nitrite Ur Leukocyte Esterase Urine WBC (Auto) Urine RBC (Auto) Blood Type Cancelled Antibody Screen Cancelled 11/29/18 11/30/18 11/30/18 22:55 06:04 06:04 WBC 9.5 RBC 3.06 L Hgb 9.6 L Hct 28.4 L MCV 93 D MCH 31.3 MCHC 33.8 RDW 21.4 H Plt Count 154 Seg Neutrophils % 71.9 Retic Count (auto) Sodium 134.3 L Potassium 4.2 Chloride 105 Carbon Dioxide 23 Anion Gap 6 BUN 72 H Creatinine 1.61 H Est GFR ( Amer) 50 L Glucose 132 H Calcium 9.1 Iron TIBC % Saturation Ferritin Total Bilirubin AST Alkaline Phosphatase Total Protein Albumin Vitamin B12 Folate Urine Color Urine Appearance Urine pH Ur Specific [place] Urine Protein Urine Glucose (UA) Urine Ketones Urine Blood Urine Nitrite Ur Leukocyte Esterase Urine WBC (Auto) Urine RBC (Auto) Blood Type B POSITIVE Antibody Screen NEGATIVE 11/29/18 19:46 Troponin I 0.020 Impressions: Chest X-Ray 11/29/18 20:52 IMPRESSION: 1. No acute pulmonary findings. 2. AICD Assessment & Plan - Diagnosis (1) Upper GI bleed Is this a current diagnosis for this admission?: Yes Plan: will need EGD, could be PUD would consider Propofol sedation continue PPI for now (2) Personal history of malignant neoplasm of large intestine Plan: unclear where patient is in his surveillance protocol if need be, can have colonoscopy in the same setting will get old records to determine next evaluation Risks, benefits and alternative of both procedures are discussed with the patient in detail - Time Time Spent: 50 to 70 Minutes
[2018-11-30] MEDS: IPRATROPIUM/ALBUTEROL 0.5-2.5 MG/3 ML AMPUL NEB SCH ×2 (08:58→19:54)
[2018-11-30] MEDS ORDERED: ONDANSETRON HCL INJ/PF 4 MG/2 ML SDV ONE (09:23)
[2018-11-30] MEDS ORDERED: FENTANYL CITRATE INJ/PF 100 MCG/2 ML AMPUL ONE (09:23)
[2018-11-30] MEDS ORDERED: DIPHENHYDRAMINE HCL 50 MG/ML VIAL ONE (09:23)
[2018-11-30] MEDS ORDERED: EPINEPHRINE INJ 1 MG/10 ML DISP.SYRIN ONE (09:24)
[2018-11-30] MEDS ORDERED: NALOXONE HCL INJ/PF 0.4 MG/1 ML SDV ONE (09:24)
[2018-11-30] MEDS ORDERED: FLUMAZENIL INJ 0.5 MG/5 ML VIAL ONE (09:24)
[2018-11-30] MEDS ORDERED: GLUCAGON,HUMAN RECOMB 1 MG INJ ONE (09:24)
[2018-11-30] MEDS: MIDAZOLAM 2 MG/2 ML INJ ONE ×2 (10:07→10:09)
--- NOTE | 2018-11-30 10:27 | Operative Report ---
Operative Report DATE OF SURGERY: 11/30/18 Operative Report: The risks benefits and alternatives of the procedure explained to the patient in detail and informed consent is obtained.A GIF Olympus video scope was inserted into the patient's mouth and hypopharynx, the esophagus is identified intubated and insufflated, the scope was then advanced through the esophagus stomach and duodenum, retroflexion maneuver is done ,the esophagus stomach and first and second portions of the duodenum examined. PREOPERATIVE DIAGNOSIS: Melena, chronic anemia POSTOPERATIVE DIAGNOSIS: Clean-based gastric ulcers. Duodenitis. No active bleeding. Biopsies obtained to rule out for Helicobacter pylori OPERATION: EGD with biopsy SURGEON: CLAUDINE PALOMINO ANESTHESIA: Moderate Sedation - 3 mg of Versed, 25 mcg of fentanyl. Conscious sedation monitoring time 30 minutes. TISSUE REMOVED OR ALTERED: As noted above. COMPLICATIONS: None. ESTIMATED BLOOD LOSS: None. INTRAOPERATIVE FINDINGS: As noted above. PROCEDURE: Patient tolerated the procedure well. No immediate postprocedure complications are noted. Can start clear liquids. Watch H&H and if stable can be transfused as necessary. Transferred to intermediate unit. Continue PPI. Patient has had recent colonoscopy performed by Dr. Cutler in October.
[2018-11-30] MEDS: DIAZEPAM INJ 10 MG/2 ML DISP.SYRIN IV SCH ×2 (11:11→21:25)
--- NOTE | 2018-11-30 11:18 | PDOC PROGRESS REPORT ---
Subjective Progress Note for:: 11/30/18 Subjective:: Pt has no complaints. No further bleeding Reason For Visit: UPPER GI BLEED,ANEMIA Physical Exam Vital Signs: Temp Pulse Resp BP Pulse Ox 98.7 F 98 16 110/68 96 11/30/18 08:00 11/30/18 10:30 11/30/18 10:30 11/30/18 10:30 11/30/18 10:30 Intake & Output 11/29/18 11/30/18 12/01/18 06:59 06:59 06:59 Intake Total 650 100 Output Total 0 Balance 650 100 Weight 86.5 kg General appearance: PRESENT: no acute distress, cooperative, hard of hearing Eye exam: PRESENT: EOMI Ear exam: PRESENT: normal external ear exam Mouth exam: PRESENT: moist Respiratory exam: PRESENT: clear to auscultation caity Cardiovascular exam: PRESENT: RRR GI/Abdominal exam: PRESENT: soft Additonal comments: Non-tender Rectal exam: PRESENT: deferred, heme (+) stool Extremities exam: PRESENT: full ROM Musculoskeletal exam: PRESENT: ambulatory Neurological exam: PRESENT: alert, oriented to person, oriented to place, oriented to time, oriented to situation Skin exam: PRESENT: normal color Results Laboratory Results: 11/30/18 06:04 11/30/18 06:04 11/29/18 11/29/18 11/29/18 19:46 19:46 19:46 WBC 14.8 H RBC 2.56 L Hgb 8.8 L Hct 25.9 L MCV 101 H MCH 34.3 H MCHC 34.0 RDW 13.9 Plt Count 206 Seg Neutrophils % 81.0 H Retic Count (auto) Sodium 133.2 L Potassium 4.9 Chloride 102 Carbon Dioxide 21 L Anion Gap 10 BUN 76 H Creatinine 1.64 H Est GFR ( Amer) 49 L Glucose 138 H Calcium 9.6 Iron TIBC % Saturation Ferritin Total Bilirubin 0.4 AST 19 Alkaline Phosphatase 63 Total Protein 6.1 L Albumin 3.6 Vitamin B12 Folate Urine Color YELLOW Urine Appearance SLIGHTLY-CLOUDY Urine pH 5.0 Ur Specific [place] 1.016 Urine Protein NEGATIVE Urine Glucose (UA) NEGATIVE Urine Ketones NEGATIVE Urine Blood NEGATIVE Urine Nitrite NEGATIVE Ur Leukocyte Esterase SMALL H Urine WBC (Auto) 7 Urine RBC (Auto) 1 Blood Type Antibody Screen 11/29/18 11/29/18 11/29/18 19:46 19:46 22:17 WBC RBC Hgb Hct MCV MCH MCHC RDW Plt Count Seg Neutrophils % Retic Count (auto) 1.97 Sodium Potassium Chloride Carbon Dioxide Anion Gap BUN Creatinine Est GFR ( Amer) Glucose Calcium Iron 176.9 TIBC 289 % Saturation 61 Ferritin 122.00 Total Bilirubin AST Alkaline Phosphatase Total Protein Albumin Vitamin B12 330.0 Folate 13.90 Urine Color Urine Appearance Urine pH Ur Specific [place] Urine Protein Urine Glucose (UA) Urine Ketones Urine Blood Urine Nitrite Ur Leukocyte Esterase Urine WBC (Auto) Urine RBC (Auto) Blood Type Cancelled Antibody Screen Cancelled 11/29/18 11/30/18 11/30/18 22:55 06:04 06:04 WBC 9.5 RBC 3.06 L Hgb 9.6 L Hct 28.4 L MCV 93 D MCH 31.3 MCHC 33.8 RDW 21.4 H Plt Count 154 Seg Neutrophils % 71.9 Retic Count (auto) Sodium 134.3 L Potassium 4.2 Chloride 105 Carbon Dioxide 23 Anion Gap 6 BUN 72 H Creatinine 1.61 H Est GFR ( Amer) 50 L Glucose 132 H Calcium 9.1 Iron TIBC % Saturation Ferritin Total Bilirubin AST Alkaline Phosphatase Total Protein Albumin Vitamin B12 Folate Urine Color Urine Appearance Urine pH Ur Specific [place] Urine Protein Urine Glucose (UA) Urine Ketones Urine Blood Urine Nitrite Ur Leukocyte Esterase Urine WBC (Auto) Urine RBC (Auto) Blood Type B POSITIVE Antibody Screen NEGATIVE 11/29/18 19:46 Troponin I 0.020 EKG Comments: SR with no apparent ischemia or ectopy Impressions: Chest X-Ray 11/29/18 20:52 IMPRESSION: 1. No acute pulmonary findings. 2. AICD Assessment & Plan - Diagnosis (1) Alcohol dependence Qualifiers: Substance use status: uncomplicated Qualified Code(s): F10.20 - Alcohol dependence, uncomplicated Is this a current diagnosis for this admission?: Yes Plan: The obvious concern here is alcohol withdrawel. This apparently is a care home i ssue and in the next 24 hor or so he will not need withdrawel medication. Ativan and valium ordered. (2) Personal history of malignant neoplasm of large intestine Is this a current diagnosis for this admission?: Yes Plan: Clear colonoscopy one month ago. (3) Symptomatic anemia Is this a current diagnosis for this admission?: Yes Plan: Hgb now 9.6 after transfusion, no further bleeding noted. (4) Upper GI bleed Is this a current diagnosis for this admission?: Yes Plan: Several non bleeding gastic ulcers and duodenitis. Protonix BID. Hope to send home tomorrrow. Transfer out of ICU today. - Time Time Spent with patient: 35 or more minutes Total Critical Time (Minutes): 35 Medications reviewed and adjusted accordingly: Yes Anticipated discharge: Home Within: within 24 hours
[2018-11-30] MEDS: THIAMINE HCL 100 MG, FOLIC ACID 1 MG in NORMAL SALINE 250 ML IV SCH (11:21)
[2018-11-30] MEDS: CYANOCOBALAMIN (VITAMIN B-12) INJ 1000 MCG/1 ML VIAL IM SCH (11:23)
--- NOTE | 2018-11-30 11:23 | EKG REPORT ---
SEVERITY:- ABNORMAL ECG - SINUS TACHYCARDIA INFERIOR INFARCT, AGE INDETERMINATE : Confirmed by: Rebeka Tuttle 30-Nov-2018 11:22:06
[2018-11-30] MEDS ORDERED: ATORVASTATIN CALCIUM 80 MG TABLET PO SCH (18:00)
[2018-11-30] MEDS: METOPROLOL SUCCINATE 50 MG TAB.SR.24H PO SCH (21:24)
[2018-11-30] MEDS: SACUBITRIL/VALSARTAN 97 MG/103 MG TABLET PO SCH (21:24)
[2018-11-30] MEDS: PANTOPRAZOLE SODIUM 40 MG VIAL IV SCH (21:25)
[2018-12-01 04:03] LABS: ABSOLUTE BASOPHILS # (AUTO) 0.1 10^3/uL (0.0-0.2); ABSOLUTE EOSINOPHILS # (AUTO) 0.1 10^3/uL (0.0-0.6); ABSOLUTE LYMPHOCYTES (AUTO) 1.7 10^3/uL (0.5-4.7); ABSOLUTE MONOCYTES (AUTO) 0.6 10^3/uL (0.1-1.4); ABSOLUTE NEUT (AUTO) 5.6 10^3/uL (1.7-8.2); EOSINOPHILS % (AUTO) 0.9 % (0-6); HEMATOCRIT 26.8 % (37.9-51.0); HEMOGLOBIN 9.1 g/dL (13.5-17.0); LYMPHOCYTES % (AUTO) 21.3 % (13-45); MEAN CORPUSCULAR HEMOGLOBIN 31.3 pg (27.0-33.4); MEAN CORPUSCULAR HGB CONC 33.8 g/dL (32.0-36.0); MEAN CORPUSCULAR VOLUME 93 fl (80-97); MONOCYTES % (AUTO) 7.8 % (3-13); PLATELET COUNT 153 10^3/uL (150-450); RED CELL DISTRIBUTION WIDTH 21.9 % (11.5-14.0); TOTAL CELLS COUNTED % (AUTO) 100 %; WHITE BLOOD COUNT 8.2 10^3/uL (4.0-10.5)
[2018-12-01 04:19] LABS: ANISOCYTOSIS 3+; PLATELET COMMENT ADEQUATE
[2018-12-01 04:22] LABS: ANION GAP 6 (5-19); CALCIUM 8.6 mg/dL (8.4-10.2); CARBON DIOXIDE 23 mmol/L (22-30); CHLORIDE 106 mmol/L (98-107); GLUCOSE 103 mg/dL (75-110)
[2018-12-01 04:38] LABS: BLOOD UREA NITROGEN 42 mg/dL (7-20)
[2018-12-01] MEDS: IPRATROPIUM/ALBUTEROL 0.5-2.5 MG/3 ML AMPUL NEB SCH (08:20)
[2018-12-01] MEDS: PANTOPRAZOLE SODIUM 40 MG VIAL IV SCH (09:17)
[2018-12-01] MEDS: CYANOCOBALAMIN (VITAMIN B-12) INJ 1000 MCG/1 ML VIAL IM SCH (09:18)
[2018-12-01] MEDS: METOPROLOL SUCCINATE 50 MG TAB.SR.24H PO SCH (09:19)
[2018-12-01] MEDS: SACUBITRIL/VALSARTAN 97 MG/103 MG TABLET PO SCH (09:29)
[2018-12-01] MEDS: THIAMINE HCL 100 MG, FOLIC ACID 1 MG in NORMAL SALINE 250 ML IV SCH (09:29)
[2018-12-01] MEDS: DIAZEPAM INJ 10 MG/2 ML DISP.SYRIN IV SCH (09:31)
[2018-12-01] MEDS ORDERED: FUROSEMIDE 40 MG TABLET PO SCH (10:00)
[2018-12-01] MEDS ORDERED: SPIRONOLACTONE 25 MG TABLET PO SCH (10:00)
[2018-12-01 10:31] VITALS: BP 99/66
--- NOTE | 2018-12-01 12:13 | PDOC DISCHARGE SUMMARY ---
Impression - Admit/DC Date/PCP Admission Date/Primary Care Provider: 11/29/18 23:07 TOÑO AVERY MD Discharge Date: 12/01/18 - Discharge Diagnosis (1) Alcohol dependence Is this a current diagnosis for this admission?: Yes (2) Personal history of malignant neoplasm of large intestine Is this a current diagnosis for this admission?: No (3) Symptomatic anemia Is this a current diagnosis for this admission?: Yes (4) Upper GI bleed Is this a current diagnosis for this admission?: Yes - Additional Information Resuscitation Status: Do Not Resuscitate Discharge Diet: Regular Discharge Activity: Activity As Tolerated Referrals: TOÑO AVERY MD [Primary Care Provider] - 12/08/18 4:00 pm (FOLLOW-UP APPOINTMENT MADE FOR 12/08/18 @ 1600) Home Medications: Apixaban [Eliquis 5 mg Tablet] 5 mg PO Q12 11/30/18 Atorvastatin Calcium [Lipitor 80 mg Tablet] 80 mg PO QPM 11/30/18 Clopidogrel Bisulfate [Plavix 75 mg Tablet] 75 mg PO DAILY 11/30/18 Furosemide [Lasix 40 mg Tablet] 40 mg PO DAILY 11/30/18 Metoprolol Succinate [Toprol XL 100 mg Tablet] 100 mg PO Q12 11/30/18 Sacubitril/Valsartan [Entresto 97 mg/103 mg Tablet] 1 tab PO Q12 11/30/18 Spironolactone [Aldactone 25 mg Tablet] 25 mg PO DAILY 11/30/18 History of Present Illiness History of Present Illness: EDEN FLORES is a 78 year old male with black BMs x 2 weeks. Hx colon CA but negative colonoscopy last month. He was found to be anemic, transfused 2 units and underwent EGD by Dr. Fraser 11/30. Several non-bleeding gasric ulcers found and non-bleeding duodenitis. On Plavix and Eliquis at home. Stop for 1 week. Pt drinks heavily. No signs of WD.Likely alcoholic bleeding and worsened by anticoagulants. Protonix BIB X one month follow up with regular heel burnisher in 1-2 weeks Hospital [facility] Hospital Course: Patient has been alert oriented x4. No recurrent bleeding. Hgb 9.1 at discharge. Tolerated EGD. On regular diet. Home in 2 days Physical Exam Vital Signs: Temp Pulse Resp BP Pulse Ox 97.8 F 97 19 99/66 L 97 12/01/18 07:18 12/01/18 10:00 12/01/18 10:00 12/01/18 10:00 12/01/18 10:00 Intake & Output 11/30/18 12/01/18 12/02/18 06:59 06:59 06:59 Intake Total 650 351.2 Output Total 860 Balance 650 -508.8 Weight 86.5 kg 86.8 kg General appearance: PRESENT: no acute distress, cooperative Eye exam: PRESENT: EOMI, PERRLA Ear exam: PRESENT: normal external ear exam Mouth exam: PRESENT: moist Neck exam: PRESENT: full ROM Respiratory exam: PRESENT: clear to auscultation caity Cardiovascular exam: PRESENT: RRR Pulses: PRESENT: normal radial pulses Vascular exam: PRESENT: normal capillary refill GI/Abdominal exam: PRESENT: soft Rectal exam: PRESENT: deferred Extremities exam: PRESENT: full ROM Musculoskeletal exam: PRESENT: ambulatory Neurological exam: PRESENT: alert, oriented to person, oriented to place, oriented to time, oriented to situation Skin exam: PRESENT: normal color Results Laboratory Results: WBC 8.2 10^3/uL (4.0-10.5) 12/01/18 03:51 RBC 2.90 10^6/uL (4.35-5.55) L 12/01/18 03:51 Hgb 9.1 g/dL (13.5-17.0) L 12/01/18 03:51 Hct 26.8 % (37.9-51.0) L 12/01/18 03:51 MCV 93 fl (80-97) 12/01/18 03:51 MCH 31.3 pg (27.0-33.4) 12/01/18 03:51 MCHC 33.8 g/dL (32.0-36.0) 12/01/18 03:51 RDW 21.9 % (11.5-14.0) H 12/01/18 03:51 Plt Count 153 10^3/uL (150-450) 12/01/18 03:51 Lymph % (Auto) 21.3 % (13-45) 12/01/18 03:51 [place] % (Auto) 7.8 % (3-13) 12/01/18 03:51 Eos % (Auto) 0.9 % (0-6) 12/01/18 03:51 Baso % (Auto) 1.0 % (0-2) 12/01/18 03:51 Reticulocyte # 0.050 10^6/uL (0.028-0.122) 11/29/18 19:46 Absolute Neuts (auto) 5.6 10^3/uL (1.7-8.2) 12/01/18 03:51 Absolute Lymphs (auto) 1.7 10^3/uL (0.5-4.7) 12/01/18 03:51 Absolute Monos (auto) 0.6 10^3/uL (0.1-1.4) 12/01/18 03:51 Absolute Eos (auto) 0.1 10^3/uL (0.0-0.6) 12/01/18 03:51 Absolute Basos (auto) 0.1 10^3/uL (0.0-0.2) 12/01/18 03:51 Seg Neutrophils % 69.0 % (42-78) 12/01/18 03:51 Platelet Comment ADEQUATE 12/01/18 03:51 Anisocytosis 3+ 12/01/18 03:51 Retic Count (auto) 1.97 % (0.66-2.85) 11/29/18 19:46 PT 15.9 SEC (11.4-15.4) H 11/29/18 22:55 INR 1.26 11/29/18 22:55 APTT 30.9 SEC (23.5-35.8) 11/29/18 22:55 Sodium 135.0 mmol/L (137-145) L 12/01/18 03:51 Potassium 4.0 mmol/L (3.6-5.0) 12/01/18 03:51 Chloride 106 mmol/L (98-107) 12/01/18 03:51 Carbon Dioxide 23 mmol/L (22-30) 12/01/18 03:51 Anion Gap 6 (5-19) 12/01/18 03:51 BUN 42 mg/dL (7-20) H D 12/01/18 03:51 Creatinine 1.18 mg/dL (0.52-1.25) 12/01/18 03:51 Est GFR ( Amer) > 60 (>60) 12/01/18 03:51 Est GFR (MDRD) Non-Af 59 (>60) L 12/01/18 03:51 Glucose 103 mg/dL (75-110) 12/01/18 03:51 Calcium 8.6 mg/dL (8.4-10.2) 12/01/18 03:51 Iron 176.9 ug/dL (49-181) 11/29/18 19:46 TIBC 289 ug/dL (250-450) 11/29/18 19:46 % Saturation 61 % 11/29/18 19:46 Ferritin 122.00 ng/mL (17.9-464.0) 11/29/18 19:46 Total Bilirubin 0.4 mg/dL (0.2-1.3) 11/29/18 19:46 Direct Bilirubin 0.2 mg/dL (0.0-0.4) 11/29/18 19:46 Neonat Total Bilirubin Not Reportable 11/29/18 19:46 Neonat Direct Bilirubin Not Reportable 11/29/18 19:46 Neonat Indirect Bili Not Reportable 11/29/18 19:46 AST 19 U/L (17-59) 11/29/18 19:46 ALT 16 U/L (<50) 11/29/18 19:46 Alkaline Phosphatase 63 U/L (38-126) 11/29/18 19:46 Troponin I 0.020 ng/mL 11/29/18 19:46 Total Protein 6.1 g/dL (6.3-8.2) L 11/29/18 19:46 Albumin 3.6 g/dL (3.5-5.0) 11/29/18 19:46 Vitamin B12 330.0 pg/mL (239-931) 11/29/18 19:46 Folate 13.90 ng/mL (>2.76) 11/29/18 19:46 Urine Color YELLOW 11/29/18 19:46 Urine Appearance SLIGHTLY-CLOUDY 11/29/18 19:46 Urine pH 5.0 (5.0-9.0) 11/29/18 19:46 Ur Specific [place] 1.016 11/29/18 19:46 Urine Protein NEGATIVE mg/dL (NEGATIVE) 11/29/18 19:46 Urine Glucose (UA) NEGATIVE mg/dL (NEGATIVE) 11/29/18 19:46 Urine Ketones NEGATIVE mg/dL (NEGATIVE) 11/29/18 19:46 Urine Blood NEGATIVE (NEGATIVE) 11/29/18 19:46 Urine Nitrite NEGATIVE (NEGATIVE) 11/29/18 19:46 Urine Bilirubin NEGATIVE (NEGATIVE) 11/29/18 19:46 Urine Urobilinogen NEGATIVE mg/dL (<2.0) 11/29/18 19:46 Ur Leukocyte Esterase SMALL (NEGATIVE) H 11/29/18 19:46 Urine WBC (Auto) 7 /HPF 11/29/18 19:46 Urine RBC (Auto) 1 /HPF 11/29/18 19:46 U Hyaline Cast (Auto) 12 /LPF 11/29/18 19:46 Urine Bacteria (Auto) TRACE /HPF 11/29/18 19:46 Squamous Epi Cells Auto 1 /HPF 11/29/18 19:46 Urine Mucus (Auto) RARE /LPF 11/29/18 19:46 Urine Ascorbic Acid NEGATIVE (NEGATIVE) 11/29/18 19:46 POC Stool Occult Blood POSITIVE (NEGATIVE) 11/29/18 20:45 Blood Type B POSITIVE 11/29/18 22:55 Antibody Screen NEGATIVE 11/29/18 22:55 Crossmatch See Detail 11/29/18 22:55 11/29/18 19:46 Troponin I 0.020 Impressions: Chest X-Ray 11/29/18 20:52 IMPRESSION: 1. No acute pulmonary findings. 2. AICD Plan Health Concerns: Re-bleeding with alcohol and anticoagulants. Plan of Treatment: Protonix 40 mg. BID x 30 days. Avoid alcohol. Restart anticoagulnts in 1 week. Goals: No further bleeding. Cut back or stop drinking. Stroke Is this a Stroke Patient?: No Stroke Pt being discharged on Anti-thrombolytic therapy?: No Reason(s) for not prescribing Anti-thrombolytic therapy:: Not indicated Acute Heart Failure - Is this a Heart Failure Patient?: No
== END 2018-12-01 13:35 | disposition home or self-care (01) | DRG 378 ==
LOC: ER 18:37 → EH 23:07 → ICU 11-30 03:20
PROVIDERS: ADMIT Internal Medicine; ATTEND Internal Medicine
PROC: 0DD68ZX Extraction of Stomach, Via Natural or Artificial Opening Endoscopic, Diagnostic (ICD-10-PCS; 2018-11-30)
PROC: 30233N1 Transfusion of Nonautologous Red Blood Cells into Peripheral Vein, Percutaneous Approach (ICD-10-PCS; principal; 2018-11-30 10:00)
DX: K92.2 Gastrointestinal hemorrhage, unspecified (principal); N17.9 Acute kidney failure, unspecified; F10.20 Alcohol dependence, uncomplicated; D64.9 Anemia, unspecified; K25.9 Gastric ulcer, unspecified as acute or chronic, without hemorrhage or perforation; K29.80 Duodenitis without bleeding; R51 Headache; I50.9 Heart failure, unspecified; J44.9 Chronic obstructive pulmonary disease, unspecified; I11.0 Hypertensive heart disease with heart failure; Y90.9 Presence of alcohol in blood, level not specified; Z66 Do not resuscitate; I25.2 Old myocardial infarction; Z79.01 Long term (current) use of anticoagulants; Z85.038 Personal history of other malignant neoplasm of large intestine
CPT/HCPCS: 36415; 36430; 43239; 71045; 80048; 80053; 81001; 82607; 82728; 82746; 83540; 83550; 84484; 85025; 85045; 85610; 85730; 86850; 86900; 86901; 86920; 88305; 93005; 93010; 94640; 96374; 99285; J0171; J1200; J1610; J2250; J2310; J2405; J3010; J3360; J3411; J3420; J3490; J7050; J7620; P9016; S0164

== ENCOUNTER → 2018-12-20 | Outpatient (CLI) | payer MEDICARE, OTHER ==
--- NOTE | 2018-12-20 11:18 | RADIOLOGY REPORT (SQ) ---
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 TECHNIQUE: CT scan of the chest performed using helical scanning technique with dynamic intravenous contrast injection. Images reviewed with lung, soft tissue and bone windows. Reconstructed coronal and sagittal MPR and MIP images reviewed. All images stored on PACS. All CT scanners at this facility use dose modulation, iterative reconstruction, and/or weight based d osing when appropriate to reduce radiation dose to as low as reasonably achievable (ALARA). [facility]: Dose Right [facility]: CareDose [facility]: Dose Right [facility]: Teradose 4D [facility]: SNAPCARD CONTRAST TYPE AND DOSE: 98 mL Omnipaque 350- low osmolar. RENAL FUNCTION: BUN 42 creatinine 1.18. RADIATION DOSE: CT Rad equipment meets quality standard of care and radiation dose reduction techniq ues were employed. CTDIvol: 9.5 - 14.5 mGy. DLP: 1814 mGy-cm. . LIMITATIONS: None. FINDINGS: LUNGS AND PLEURA: Mild parenchymal scarring. No opacities, nodules, masses. No pneumotho rax. No effusions. HILAR AND MEDIASTINAL STRUCTURES: No identified masses or abnormal nodes. HEART AND VASCULAR STRUCTURES: No aneurysm or dissection. No central pulmonary emboli. No pericardi al effusion. HARDWARE: Vascular port. Defibrillator. UPPER ABDOMEN: No significant findings. Limited exam. THYROID AND OTHER SOFT TISSUES: No masses. No adenopathy. BONES: No significant finding. Chronic changes in the spine. Old right rib fractures. OTHER: No other significant finding. IMPRESSION: UNREMARKABLE CT OF THE CHEST WITH IV CONTRAST. MILD PARENCHYMAL SCARRING. NO EVIDENCE OF METASTATIC INVOLVEMENT IN THE CHEST. TECHNICAL DOCUMENTATION: JOB ID: [id number] Quality ID # [id number]: Final reports with documentation of one or more dose reduction techniques (e.g., Au tomated exposure control, adjustment of the mA and/or kV according to patient size, use of iterative reconstruction technique) 2010 [employer]- All Rights Reserved Reading location - IP/workstation name: [email or web address]
--- NOTE | 2018-12-20 11:23 | RADIOLOGY REPORT (SQ) ---
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 TECHNIQUE: CT scan of the abdomen and pelvis performed using helical scanning technique with dynamic intravenous contrast injection. No oral contrast. Images reviewed with lung, soft tissue, and bone windows. Reconstructed coronal and sagittal MPR images reviewed. Delayed images for evaluation of the urinary system also acquired. All images stored on PACS. All CT scanners at this facility use dose modulation, iterative reconstruction, and/or weight based d osing when appropriate to reduce radiation dose to as low as reasonably achievable (ALARA). [facility]: Dose Right [facility]: CareDose [facility]: Dose Right [facility]: Teradose 4D [facility]: F2G CONTRAST TYPE AND DOSE: contrast/concentration: Isovue 350.00 mg/ml; Total Contrast Delivered: 98.0 ml; Total Saline Delivered: 72.0 ml RENAL FUNCTION: BUN 42 creatinine 1.18. RADIATION DOSE: . LIMITATIONS: None. FINDINGS: LOWER CHEST: No significant findings. No nodules or infiltrates. LIVER: Normal size. Diffuse fatty infiltration. Stable cysts. No dilated ducts. SPLEEN: Normal size. No focal lesions. PANCREAS: No masses. No significant calcifications. No adjacent inflammation or peripancreatic fluid collections. Pancreatic duct not dilated. GALLBLADDER: No identified stones by CT criteria. No inflammatory changes to suggest cholecystitis. ADRENAL GLANDS: No significant masses or asymmetry. RIGHT KIDNEY AND URETER: Stable cortical cysts. No solid masses. No significant calcifications. No hydronephrosis or hydroureter. LEFT KIDNEY AND URETER: Stable cortical cysts. No solid masses. No significant calcifications. N o hydronephrosis or hydroureter. AORTA AND VESSELS: No aneurysm. No dissection. Renal arteries, SMA, celiac without stenosis. RETROPERITONEUM: No retroperitoneal adenopathy, hemorrhage or masses. BOWEL AND PERITONEAL CAVITY: Previous right hemicolectomy. No masses or inflammatory changes. No courtney e fluid or peritoneal masses. APPENDIX: Surgically absent. PELVIS: No mass. No free fluid. Normal bladder. ABDOMINAL WALL: No masses. No hernias. BONES: No significant or acute findings. Degenerative changes in the spine. OTHER: No other significant finding. IMPRESSION: STABLE APPEARANCE. STABLE HEPATIC AND RENAL CYSTS. OTHERWISE NO SIGNIFICANT OR ACUTE F INDING IN THE ABDOMEN OR PELVIS ON CT SCAN WITH IV CONTRAST. NO EVIDENCE OF RESIDUAL OR RECURRENT DI SEASE OR METASTASES IN THE ABDOMEN OR PELVIS. TECHNICAL DOCUMENTATION: JOB ID: [id number] Quality ID # [id number]: Final reports with documentation of one or more dose reduction techniques (e.g., Au tomated exposure control, adjustment of the mA and/or kV according to patient size, use of iterative reconstruction technique) 2010 [employer]- All Rights Reserved Reading location - IP/workstation name: [email or web address]
== END ==
LOC: RAD 09:45
PROVIDERS: ATTEND Internal Medicine
DX: C18.6 Malignant neoplasm of descending colon (principal); K76.89 Other specified diseases of liver; N28.1 Cyst of kidney, acquired
CPT/HCPCS: 71260; 74177

== ENCOUNTER 2019-04-07 19:22 | Emergency (ER) | payer OTHER, MEDICARE ==
--- NOTE | 2019-04-07 21:26 | ER Document Report ---
ED Medical Screen (RME) - General Chief Complaint: Low Back Pain Stated Complaint: LOWER BACK PAIN Time Seen by Provider: 04/07/19 21:20 Primary Care Provider: CAL FLORES MD [Primary Care Provider] - Follow up as needed Mode of Arrival: Wheelchair Information source: Patient Notes: 78-year-old male presented to ED for complaint of low back pain starting Wednesday evening. His is at his side and states that he lifted a case of jelly Wednesday. Patient states he has a history of back pain but this is different. Patient denies any signs or symptoms of cauda equina, no loss of control of bowel bladder, no saddle anesthesia no change in the sensation or control of his lower extremities. He states he has had some loss of sensation for a long time but nothing new. States the pain started all way across the back but now is mostly just on the right side. He has a history of kidney stones. After performing a Medical Screening Examination, I spoke with the patient at length in regards to leaving the hospital against medical advice. I do not believe the patient should leave but the patient is alert oriented x4, understands the risks and benefits of staying and leaving including disability and . Pt understands that he can return at any time for further care and is more than welcome to do so. Pt verbalizes this understanding. TRAVEL OUTSIDE OF THE [place] IN LAST 30 DAYS: No - Related Data Allergies/Adverse Reactions: No Known Allergies Allergy (Verified 12/13/17 14:10) Past Medical History - Social History Cigarette use (# per day): No - Former Frequency of alcohol use: Heavy - Daily Drug Abuse: None Lives with: Family Family history: Reviewed & Not Pertinent - Past Medical History Cardiac Medical History: Reports: Hx Congestive Heart Failure - Questionable congestive heart failure, Hx Coronary Artery Disease, Hx Heart Attack - 7 yrs ago, Hx Hypercholesterolemia, Hx Hypertension - medicated Pulmonary Medical History: Reports: Hx COPD EENT Medical History: Reports: None Neurological Medical History: Reports: Hx Cerebrovascular Accident - Subdural hematoma Endocrine Medical History: Reports: Hx Diabetes Mellitus Type 2 Renal/ Medical History: Reports: Hx Kidney Stones Malignancy Medical History: Reports Hx Colorectal Cancer - Has had surgery and chemotherapy. states a while ago GI Medical History: Reports: Hx Colonoscopy, Hx Endoscopy Musculoskeltal Medical History: Reports Hx Arthritis, Reports Hx Musculoskeletal Deformity, Reports Hx Musculoskeletal Trauma Skin Medical History: Reports None Psychiatric Medical History: Reports: None Traumatic Medical History: Reports: Hx Fractures - Left arm twice ankle once Infectious Medical History: Reports: None Past Surgical History: Reports: Hx Abdominal Surgery - colon, Hx Appendectomy, Hx Bowel Surgery, Hx Cardiac Catheterization, Hx Cardiac Surgery - stent and pacemaker,, Hx Coronary Stent, Hx Internal Defibrillator, Hx Pacemaker - pacer/defib, Hx Vascular Surgery - Chemo-Port placement and removed, Other - Subdural hematoma surgery - Immunizations Hx Diphtheria, Pertussis, Tetanus Vaccination: No Physical Exam - Vital signs Vitals: Temp Pulse Resp BP Pulse Ox 98.4 F 122 H 14 148/93 H 97 04/07/19 20:39 04/07/19 20:39 04/07/19 20:39 04/07/19 20:39 04/07/19 20:39 Course - Vital Signs Vital signs: Temp Pulse Resp BP Pulse Ox 98.4 F 122 H 14 148/93 H 97 04/07/19 20:39 04/07/19 20:39 04/07/19 20:39 04/07/19 20:39 04/07/19 20:39 Doctor's Discharge - Discharge Referrals: CAL FLORES MD [Primary Care Provider] - Follow up as needed
--- NOTE | 2019-04-07 22:38 | RADIOLOGY REPORT (SQ) ---
EXAM DESCRIPTION: CT ABDOMEN PELVIS WITHOUT IV CONTRAST COMPLETED DATE/TME: 04/07/2019 21:59 CLINICAL HISTORY: 78 years Male, Right flank pain Comparison:Dec 20 2018 Technique: No contrast. Coronal and sagittal reformat. This exam was performed according to our departmental dose-optimization program, which includes automated exposure control, adjustment of the mA and/or kV according to patient size and/or use of iterative reconstruction technique.[facility]: Dose Right [facility]: CareDose [facility]: Dose Right [facility]: Teradose 4D [facility]: DueProps LIMITATIONS: None Findings: Bilateral perinephric fat stranding, nonspecific. Likely benign renal cyst(s), not definitively characterized. Likely benign, low-attenuation hepatic lesion(s) not definitively characterized. Nodular liver contour may indicate cirrhosis or other diffuse hepatic process. Atherosclerotic vascular disease. Renal arterial calcification. Cardiac stimulation leads partially imaged. Degenerative disc disease. Suture associated with bowel of the right upper abdominal quadrant. Right colon is not identified possibly resected. Moderate thecal sac compression at the lower lumbar levels due to disc bulge/osteophyte complex spondylosis. No ascites. No pneumoperitoneum. No evidence of appendicitis. Appendix not definitively discerned/appendectomy. No gross evidence of gallbladder inflammation, hepatobiliary obstruction, or portal vein defect. No bowel obstruction. No hydronephrosis or hydroureter. No renal/ureteral stone. Unenhanced lower thorax, abdominopelvic structures, and musculoskeleton appear otherwise grossly unremarkable. Impression: No acute findings.
--- NOTE | 2019-04-08 06:14 | ER Document Report ---
ED General Pain - General Chief Complaint: Flank Pain Stated Complaint: LOWER BACK PAIN Time Seen by Provider: 04/07/19 21:20 Primary Care Provider: CAL FLORES MD [Primary Care Provider] - Follow up as needed Mode of Arrival: Wheelchair TRAVEL OUTSIDE OF THE [place] IN LAST 30 DAYS: No - Related Data Allergies/Adverse Reactions: No Known Allergies Allergy (Verified 12/13/17 14:10) Past Medical History - General Information source: Patient - Social History Smoking Status: Former Smoker Cigarette use (# per day): No - Former Frequency of alcohol use: Heavy - Daily Drug Abuse: None Lives with: Family Family History: Reviewed & Not Pertinent Patient has suicidal ideation: No Patient has homicidal ideation: No - Past Medical History Cardiac Medical History: Reports: Hx Congestive Heart Failure - Questionable congestive heart failure, Hx Coronary Artery Disease, Hx Heart Attack - 7 yrs ago, Hx Hypercholesterolemia, Hx Hypertension - medicated Pulmonary Medical History: Reports: Hx COPD EENT Medical History: Reports: None Neurological Medical History: Reports: None, Hx Cerebrovascular Accident - Subdural hematoma Endocrine Medical History: Reports: Hx Diabetes Mellitus Type 2 Renal/ Medical History: Reports: Hx Kidney Stones Malignancy Medical History: Reports Hx Colorectal Cancer - Has had surgery and chemotherapy. states a while ago GI Medical History: Reports: Hx Colonoscopy, Hx Endoscopy Musculoskeletal Medical History: Reports Hx Arthritis, Reports Hx Musculoskeletal Deformity, Reports Hx Musculoskeletal Trauma Skin Medical History: Reports None Psychiatric Medical History: Reports: None Traumatic Medical History: Reports: Hx Fractures - Left arm twice ankle once Infectious Medical History: Reports: None Past Surgical History: Reports: Hx Abdominal Surgery - colon, Hx Appendectomy, Hx Bowel Surgery, Hx Cardiac Catheterization, Hx Cardiac Surgery - stent and pacemaker,, Hx Coronary Stent, Hx Internal Defibrillator, Hx Pacemaker - pacer/defib, Hx Vascular Surgery - Chemo-Port placement and removed, Other - Subdural hematoma surgery. Denies: Hx Open Heart Surgery - Immunizations Hx Diphtheria, Pertussis, Tetanus Vaccination: No Physical Exam - Vital signs Vitals: Temp Pulse Resp BP Pulse Ox 98.4 F 122 H 14 148/93 H 97 04/07/19 20:39 04/07/19 20:39 04/07/19 20:39 04/07/19 20:39 04/07/19 20:39 Course - Vital Signs Vital signs: Temp Pulse Resp BP Pulse Ox 98.6 F 110 H 18 144/71 H 97 04/08/19 02:41 04/08/19 02:41 04/08/19 02:41 04/08/19 02:41 04/08/19 02:41 Discharge - Discharge Referrals: CAL FLORES MD [Primary Care Provider] - Follow up as needed
[2019-04-08 07:50] LABS: ABSOLUTE LYMPHOCYTES (AUTO) 0.8 10^3/uL (0.5-4.7); ABSOLUTE MONOCYTES (AUTO) 0.5 10^3/uL (0.1-1.4); ABSOLUTE NEUT (AUTO) 4.8 10^3/uL (1.7-8.2); BASOPHILS % (AUTO) 0.6 % (0-2); EOSINOPHILS % (AUTO) 0.5 % (0-6); HEMATOCRIT 38.4 % (37.9-51.0); LYMPHOCYTES % (AUTO) 13.7 % (13-45); MEAN CORPUSCULAR HEMOGLOBIN 33.6 pg (27.0-33.4); MEAN CORPUSCULAR HGB CONC 33.8 g/dL (32.0-36.0); MEAN CORPUSCULAR VOLUME 100 fl (80-97); MONOCYTES % (AUTO) 8.3 % (3-13); PLATELET COUNT 199 10^3/uL (150-450); RED BLOOD COUNT 3.86 10^6/uL (4.35-5.55); RED CELL DISTRIBUTION WIDTH 15.1 % (11.5-14.0); SEGMENTED NEUTROPHILS % (AUTO) 76.9 % (42-78); TOTAL CELLS COUNTED % (AUTO) 100 %; WHITE BLOOD COUNT 6.2 10^3/uL (4.0-10.5)
[2019-04-08 08:12] LABS: ALBUMIN 3.6 g/dL (3.5-5.0); ALKALINE PHOSPHATASE 63 U/L (38-126); ANION GAP 6 (5-19); ASPARTATE AMINO TRANSFERASE 20 U/L (17-59); BILIRUBIN,TOTAL 0.5 mg/dL (0.2-1.3); BLOOD UREA NITROGEN 23 mg/dL (7-20); CALCIUM 8.6 mg/dL (8.4-10.2); CARBON DIOXIDE 28 mmol/L (22-30); CHLORIDE 101 mmol/L (98-107); GLUCOSE 115 mg/dL (75-110); POTASSIUM 4.2 mmol/L (3.6-5.0); TOTAL PROTEIN 6.3 g/dL (6.3-8.2)
[2019-04-08 08:14] LABS: URINE AMPHETAMINES SCREEN NEGATIVE; URINE BARBITURATES SCREEN NEGATIVE; URINE BENZODIAZEPINES SCREEN NEGATIVE; URINE COCAINE SCREEN NEGATIVE; URINE MARIJUANA (THC) SCREEN NEGATIVE; URINE METHADONE SCREEN NEGATIVE; URINE PHENCYCLIDINE SCREEN NEGATIVE
[2019-04-08 08:23] LABS: APPEARANCE,URINE SLIGHTLY-CLOUDY; BILIRUBIN,URINE NEGATIVE (NEGATIVE); COLOR,URINE YELLOW; GLUCOSE, URINE NEGATIVE (NEGATIVE); KETONES,URINE TRACE mg/dL (NEGATIVE); LEUKOCYTE ESTERASE,URINE SMALL (NEGATIVE); NITRITE,URINE NEGATIVE (NEGATIVE); PROTEIN,URINE 30 mg/dL (NEGATIVE); URINE SPECIFIC GRAVITY 1.017; UROBILINOGEN,URINE NEGATIVE mg/dL (<2.0)
[2019-04-08 08:24] LABS: ALCOHOL < 10 mg/dL (NONE DETECTED)
[2019-04-08] MEDS ORDERED: ACETAMINOPHEN 325 MG TABLET PO ONE (09:08)
[2019-04-08 09:43] VITALS: BP 125/66
--- NOTE | 2019-04-08 17:12 | ER Document Report ---
Entered by INGRID HARO SCRIBE 04/08/19 0648 Acting as scribe for:RAJESH COLIN MD ED General Pain - General Chief Complaint: Flank Pain Stated Complaint: LOWER BACK PAIN Time Seen by Provider: 04/07/19 21:20 Primary Care Provider: CAL FLORES MD [Primary Care Provider] - Follow up as needed Mode of Arrival: Wheelchair Information source: Patient Notes: This 78-year-old male patient presents to the emergency department today with complaints of right low back pain for the last week. Patient states earlier in the week it radiated across the entire low back and now it seems to be localized to the right low back. states that she noticed that he began complaining of pain after picking up a palate of grape jelly and putting it in the back of his truck. Patient denies any change in his urination. TRAVEL OUTSIDE OF THE [place] IN LAST 30 DAYS: No - Related Data Allergies/Adverse Reactions: No Known Allergies Allergy (Verified 12/13/17 14:10) Past Medical History - General Information source: Patient - Social History Smoking Status: Former Smoker Cigarette use (# per day): No - Former Frequency of alcohol use: Heavy - Daily Drug Abuse: None Lives with: Family Family History: Reviewed & Not Pertinent Patient has suicidal ideation: No Patient has homicidal ideation: No - Past Medical History Cardiac Medical History: Reports: Hx Congestive Heart Failure - Questionable congestive heart failure, Hx Coronary Artery Disease, Hx Heart Attack - 7 yrs ago, Hx Hypercholesterolemia, Hx Hypertension - medicated Pulmonary Medical History: Reports: Hx COPD EENT Medical History: Reports: None Neurological Medical History: Reports: None, Hx Cerebrovascular Accident - Subdural hematoma Endocrine Medical History: Reports: Hx Diabetes Mellitus Type 2 Renal/ Medical History: Reports: Hx Kidney Stones Malignancy Medical History: Reports Hx Colorectal Cancer - Has had surgery and chemotherapy. states a while ago GI Medical History: Reports: Hx Colonoscopy, Hx Endoscopy Musculoskeletal Medical History: Reports Hx Arthritis, Reports Hx Musculoskeletal Deformity, Reports Hx Musculoskeletal Trauma Skin Medical History: Reports None Psychiatric Medical History: Reports: None Traumatic Medical History: Reports: Hx Fractures - Left arm twice ankle once Infectious Medical History: Reports: None Past Surgical History: Reports: Hx Abdominal Surgery - colon, Hx Appendectomy, Hx Bowel Surgery, Hx Cardiac Catheterization, Hx Cardiac Surgery - stent and pacemaker,, Hx Coronary Stent, Hx Internal Defibrillator, Hx Pacemaker - pacer/defib, Hx Vascular Surgery - Chemo-Port placement and removed, Other - Subdural hematoma surgery. Denies: Hx Open Heart Surgery - Immunizations Hx Diphtheria, Pertussis, Tetanus Vaccination: No Review of Systems - Review of Systems Constitutional: No symptoms reported EENT: No symptoms reported Cardiovascular: No symptoms reported Respiratory: No symptoms reported Gastrointestinal: No symptoms reported Genitourinary: denies: Burning, Dysuria, Frequency, Urgency Male Genitourinary: No symptoms reported Musculoskeletal: See HPI, Back pain Skin: No symptoms reported Hematologic/Lymphatic: No symptoms reported Neurological/Psychological: No symptoms reported -: Yes All other systems reviewed and negative Physical Exam - Vital signs Vitals: Temp Pulse Resp BP Pulse Ox 98.4 F 122 H 14 148/93 H 97 04/07/19 20:39 04/07/19 20:39 04/07/19 20:39 04/07/19 20:39 04/07/19 20:39 - Notes Notes: Physical Exam: General: Alert, appears age appropriate. HEENT: Normocephalic. Atraumatic. PERRL. Extraocular movements intact. Oropharynx clear. Neck: Supple. Non-tender. Respiratory: No respiratory distress. Clear and equal breath sounds bilaterally. Cardiovascular: Regular rate and rhythm. Abdominal: Obese, mildly distended abdomen. No tenderness with palpation. Normal Bowel Sounds. Back: Mild right sided lumbar paraspinal tenderness with palpation, no step-offs or deformities. No gross abnormalities. Extremities: Moves all four extremities. Upper extremities: Normal inspection. Normal ROM. Lower extremities: Normal inspection. No edema. Normal ROM. Neurological: Normal cognition. AAOx4. Normal speech. Psychological: Normal affect. Normal Mood. Skin: Warm. Dry. Normal color. Course - Re-evaluation Re-evalutation: 04/08/19 09:09 Patient resting comfortably and states his back pain is about a 1 out of 5 at this time. Moving all extremities well alert no acute distress. - Vital Signs Vital signs: Temp Pulse Resp BP Pulse Ox 98.3 F 90 18 130/72 H 97 04/08/19 08:50 04/08/19 08:50 04/08/19 08:50 04/08/19 08:50 04/08/19 08:50 - Laboratory Result Diagrams: 04/08/19 07:32 04/08/19 07:32 Laboratory results interpreted by me: 04/08/19 04/08/19 04/08/19 07:32 07:32 07:32 RBC 3.86 L Hgb 13.0 L MCV 100 H MCH 33.6 H RDW 15.1 H Sodium 134.7 L BUN 23 H Creatinine 1.29 H Est GFR (MDRD) Non-Af 54 L Glucose 115 H Urine Protein 30 H Urine Ketones TRACE H Ur Leukocyte Esterase SMALL H Urine Ascorbic Acid 40 H - Diagnostic Test Radiology reviewed: Image reviewed, Reports reviewed Radiology results interpreted by me: 04/08/19 09:[address] scan of the abdomen pelvis shows degenerative arthritic disease in lumbar spine no acute pathology noted in the abdomen. Patient does have chronic stranding in both kidneys but no signs of hydronephrosis or any obstruction. The organs within normal limits. 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 I recommend patient take Tylenol as needed for pain he may take 2 extra strength Tylenol tablets twice a day as needed for low back pain. Advised him not to do any heavy lifting pushing or or straining. Advised to follow-up with his primary physician in the next 1 to 5 days. Referrals: CAL FLORES MD [Primary Care Provider] - Follow up as needed I personally performed the services described in the documentation, reviewed and edited the documentation which was dictated to the scribe in my presence, and it accurately records my words and actions.
== END 2019-04-08 09:52 | disposition home or self-care (01) ==
LOC: ER 19:22
DX: M47.816 Spondylosis without myelopathy or radiculopathy, lumbar region (principal); M54.5 Low back pain; R14.0 Abdominal distension (gaseous); I25.10 Atherosclerotic heart disease of native coronary artery without angina pectoris; I10 Essential (primary) hypertension; J44.9 Chronic obstructive pulmonary disease, unspecified; E11.9 Type 2 diabetes mellitus without complications; Z87.891 Personal history of nicotine dependence
CPT/HCPCS: 36415; 74176; 80053; 80307; 81001; 83690; 85025; 99284

== ENCOUNTER → 2020-02-12 | Outpatient (CLI) | payer MEDICARE, OTHER ==
--- NOTE | 2020-02-12 13:30 | RADIOLOGY REPORT (SQ) ---
EXAM DESCRIPTION: U/S RETROPERITON (RENAL/AORTA) IMAGES COMPLETED DATE/TIME: 02/12/2020 1:07 pm REASON FOR STUDY: CKD STAGE 3 N18.30 CHRONIC KIDNEY DISEASE, STAGE 3 UNSPECIFIED COMPARISON: None. TECHNIQUE: Dynamic and static grayscale images acquired of the kidneys and bladder and recorded on P ACS. Additional selected color Doppler and spectral images recorded. LIMITATIONS: None. FINDINGS: RIGHT KIDNEY: Normal size, 9.2 cm. Normal echogenicity. No solid or suspicious masses. No hydronephrosis. No calcifications. LEFT KIDNEY: Normal size, 9.9 cm. Normal echogenicity. 2 small cysts are present. The larger measu res 17 mm. No solid or suspicious masses. No hydronephrosis. No calcifications. BLADDER: No bladder masses. There may be a bladder diverticulum arising posteriorly from the bladder OTHER FINDINGS: No other significant finding. IMPRESSION: Normal kidneys. Possible bladder diverticulum. TECHNICAL DOCUMENTATION: JOB ID: [id number] 2010 [employer]- All Rights Reserved Reading location - IP/workstation name: [email or web address]
== END ==
LOC: RAD 12:48
PROVIDERS: ATTEND Internal Medicine Nephrology
DX: N18.30 Chronic kidney disease, stage 3 unspecified (principal)
CPT/HCPCS: 76770

== ENCOUNTER → 2020-03-18 | Outpatient (CLI) | payer MEDICARE, OTHER ==
[2020-03-18 13:54] LABS: HEMATOCRIT 35.9 % (37.9-51.0); HEMOGLOBIN 11.9 g/dL (13.5-17.0); MEAN CORPUSCULAR HEMOGLOBIN 34.2 pg (27.0-33.4); MEAN CORPUSCULAR HGB CONC 33.2 g/dL (32.0-36.0); MEAN CORPUSCULAR VOLUME 103 fl (80-97); PLATELET COUNT 241 10^3/uL (150-450); RED BLOOD COUNT 3.48 10^6/uL (4.35-5.55); WHITE BLOOD COUNT 9.1 10^3/uL (4.0-10.5)
[2020-03-18 14:05] LABS: APPEARANCE,URINE CLEAR; BILIRUBIN,URINE NEGATIVE (NEGATIVE); COLOR,URINE YELLOW; GLUCOSE, URINE NEGATIVE (NEGATIVE); KETONES,URINE NEGATIVE (NEGATIVE); PROTEIN,URINE NEGATIVE (NEGATIVE); UROBILINOGEN,URINE NEGATIVE mg/dL (<2.0)
[2020-03-18 14:24] LABS: ALBUMIN 4.3 g/dL (3.5-5.0); ALKALINE PHOSPHATASE 81 U/L (38-126); ANION GAP 10 (5-19); ASPARTATE AMINO TRANSFERASE 25 U/L (17-59); BILIRUBIN,DIRECT 0.2 mg/dL (0.0-0.4); BILIRUBIN,TOTAL 0.5 mg/dL (0.2-1.3); BLOOD UREA NITROGEN 45 mg/dL (7-20); CALCIUM 9.4 mg/dL (8.4-10.2); CARBON DIOXIDE 25 mmol/L (22-30); CHLORIDE 100 mmol/L (98-107); GLUCOSE 176 mg/dL (75-110); POTASSIUM 4.9 mmol/L (3.6-5.0); TOTAL PROTEIN 7.1 g/dL (6.3-8.2); URIC ACID 12.8 mg/dL (3.5-8.5)
== END ==
LOC: OD 13:12
PROVIDERS: ATTEND Internal Medicine Nephrology
DX: N18.32 Chronic kidney disease, stage 3b (principal)
CPT/HCPCS: 36415; 80053; 81001; 83735; 84550; 85027; 87086